=== PATIENT | female | born 1960 | race Two or more races ===

== ENCOUNTER 2019-03-14 23:01 | Emergency (ER) | payer OTHER ==
[2019-03-14 23:09] VITALS: BP 137/89; PULSE 109; TEMP 98; BMI 21.4
--- NOTE | 2019-03-17 11:33 | EKG ---
Test Reason : Blood Pressure : / mmHG Vent. Rate : 082 BPM Atrial Rate : 082 BPM P-R Int : 142 ms QRS Dur : 088 ms QT Int : 370 ms P-R-T Axes : 065 056 047 degrees QTc Int : 432 ms NORMAL SINUS RHYTHM NORMAL ECG WHEN COMPARED WITH ECG OF 08-OCT-2015 08:21, T WAVE VARIATION Confirmed by SAV ARREDONDO MD ([id number]) on 03/17/2019 11:33:03 AM Referred By: Confirmed By:SAV ARREDONDO MD
--- NOTE | 2019-03-19 14:57 | PDOC ---
Documentation entered by Geovanny Cooper SCRIBE, acting as scribe for Gabrielle Lemon MD. Gabrielle Lemon MD: This documentation has been prepared by the Kenneth garcia Daniel, SCRIBE, under my direction and personally reviewed by me in its entirety. I confirm that the documentation accurately reflects all work, treatment, procedures, and medical decision making performed by me. History of Present Illness - General Chief Complaint: Chest Pain Stated Complaint: ABD PAIN Past History - Past Medical History Allergies/Adverse Reactions: Allergies Allergy/AdvReac Type Severity Reaction Status Date / Time No Known Drug Allergies Allergy Verified 10/07/15 09:13 Home Medications: Ambulatory Orders Quetiapine Fumarate [Seroquel -] 50 mg PO BID 10/17/14 Bupropion HCl [Bupropion Xl] 300 mg PO DAILY 10/07/15 Acetaminophen [Tylenol .Regular Strength -] 650 mg PO Q4H PRN #0 tablet Folic Acid - 1 mg PO DAILY #30 tablet 10/10/15 Magnesium Oxide [Mag-Ox -] 400 mg PO BID #60 tablet 10/10/15 Potassium Chloride [K-Dur -] 20 meq PO DAILY #30 tablet.er 10/10/15 Vitamin B Comp W-C [Total B with C -] 1 each PO DAILY #30 tablet 10/10/15 Anemia: No Asthma: No Cancer: No Cardiac Disorders: No CVA: No COPD: No CHF: No Dementia: No Diabetes: No GI Disorders: No Disorders: No HTN: No Hypercholesterolemia: No Liver Disease: No Psychiatric Problems: Yes (DEPRESSION) Seizures: No Thyroid Disease: No - Surgical History Abdominal Surgery: No Appendectomy: No Cardiac Surgery: No Cholecystectomy: No Lung Surgery: No Neurologic Surgery: No Orthopedic Surgery: No - Immunization History Td Vaccination: Yes TDAP Vaccination: No Immunization Up to Date: Yes - Psycho Social/Smoking Cessation Hx Smoking Status: Yes Smoking History: Current every day smoker Years of Tobacco Use: 20 Have you smoked in the past 12 months: Yes Number of Cigarettes Smoked Daily: 1 Cigars Per Day: 0 Information on smoking cessation initiated: No 'Breaking Loose' booklet given: 07/06/13 Hx Alcohol Use: No Drug/Substance Use Hx: No Substance Use Type: Alcohol Hx Substance Use Treatment: No *Physical Exam - Vital Signs Last Vital Signs Temp Pulse Resp BP Pulse Ox 98.0 F 109 H 19 137/89 95 03/14/19 23:05 03/14/19 23:05 03/14/19 23:05 03/14/19 23:05 03/14/19 23:05 Discharge - Discharge Information Problems reviewed: No Clinical Impression/Diagnosis: Pain, Eloped from emergency department Condition: Unchanged/Unknown Disposition: LEFT BEFORE MED EVSARAH KOHLI RM - Follow up/Referral - Patient Discharge Instructions - Post Discharge Activity
--- NOTE | 2019-03-19 15:42 | EKG ---
Test Reason : Blood Pressure : / mmHG Vent. Rate : 091 BPM Atrial Rate : 091 BPM P-R Int : 138 ms QRS Dur : 090 ms QT Int : 370 ms P-R-T Axes : 062 050 042 degrees QTc Int : 455 ms NORMAL SINUS RHYTHM NORMAL ECG WHEN COMPARED WITH ECG OF 08-OCT-2015 08:21, NO SIGNIFICANT CHANGE WAS FOUND Confirmed by SEKOU CRANE MD ([id number]) on 03/19/2019 3:42:16 PM Referred By: Confirmed By:SEKOU CRANE MD
== END 2019-03-15 00:16 | disposition left against medical advice (07) ==
LOC: JER 23:01
DX: Z53.21 Procedure and treatment not carried out due to patient leaving prior to being seen by health care provider (principal)
CPT/HCPCS: 93005; 93010; 99281-25

== ENCOUNTER 2019-04-23 16:28 | Inpatient (IN) | payer OTHER ==
--- NOTE | 2019-04-23 16:41 | PDOC ---
Rapid Medical Evaluation Chief Complaint: Pain Time Seen by Provider: 04/23/19 16:33 Medical Evaluation: Allergies Allergy/AdvReac Type Severity Reaction Status Date / Time No Known Drug Allergies Allergy Verified 10/07/15 09:13 04/23/19 16:35 I have performed a brief in-person evaluation of this patient. The patient presents with a chief complaint of: lower abd pain x several days. Seen at 3 days ago and told possible uti though not given abx. Pt also told ? elevated LFTs and lipase per daughter. No dysuria, change in BM, n/v/f/c. H/o ETOH abuse and depression. Last drank this am Pertinent physical exam findings:Stable and well behzad I have ordered the following:labs The patient will proceed to the ED for further evaluation. Discharge Disposition - Diagnosis Abdominal pain Qualifiers: Abdominal location: lower abdomen, unspecified Qualified Code(s): R10.30 - Lower abdominal pain, unspecified - Referrals - Patient Instructions - Post Discharge Activity
[2019-04-23 16:59] LABS: BASO % 2.1 % (0-2.0); HEMATOCRIT 41.7 % (32.4-45.2); HEMOGLOBIN 14.2 GM/dL (10.7-15.3); LYMPH % 39.8 % (8-40); MCH 32.5 pg (25.7-33.7); MCHC 34.1 g/dl (32.0-36.0); MEAN CELL VOLUME 95.3 fl (80-96); MEAN PLT VOLUME 8.1 fl (7.5-11.1); MONO % 10.7 % (3.8-10.2); NEUT % 46.4 % (42.8-82.8); PLATELET COUNT 140 K/MM3 (134-434); RBC 4.37 M/mm3 (3.60-5.2); RDW 15.1 % (11.6-15.6); WHITE BLOOD COUNT 4.4 K/mm3 (4.0-10.0)
[2019-04-23 17:01] LABS: EPI CELLS 2.5 /HPF (0-5/HPF); HYALINE CASTS 0 /lpf (0-8); URINE APPEARANCE CLEAR; URINE BACTERIA 19.3 /hpf (NEGATIVE); URINE BILIRUBIN NEGATIVE (NEGATIVE); URINE COLOR YELLOW; URINE GLUCOSE (UA) NEGATIVE (NEGATIVE); URINE KETONE NEGATIVE (NEGATIVE); URINE LEUK ESTERASE 1+ (NEGATIVE); URINE NITRITE NEGATIVE (NEGATIVE); URINE PROTEIN TRACE (NEGATIVE); URINE RBC 6 /hpf (0-4); URINE UROBILINOGEN 0.2 mg/dL (0.2-1.0); URINE WBC 3 /hpf (0-5)
[2019-04-23 18:07] LABS: ALBUMIN 3.6 g/dl (3.4-5.0); BILIRUBIN,TOTAL 0.4 mg/dL (0.2-1); BLOOD UREA NITROGEN 10.9 mg/dL (7-18); CALCIUM 8.2 mg/dL (8.5-10.1); CREATININE 0.6 mg/dL (0.55-1.3); POTASSIUM 3.3 mmol/L (3.5-5.1); TOT PROT 7.5 g/dl (6.4-8.2)
[2019-04-23] MEDS ORDERED: SODIUM CHLORIDE 0.9% 500 ML INFUS.BAG IV ONE ×5 (18:16→23:48)
[2019-04-23] MEDS ORDERED: CEFTRIAXONE 1 GM in DEXTROSE 5%-WATER - 100 ML IVPB ONE (18:29)
[2019-04-23] MEDS ORDERED: THIAMINE HCL 200 MG/2 ML VIAL IVPB ONE (18:31)
[2019-04-23] MEDS ORDERED: FOLIC ACID 1 MG TABLET (FP) PO ONE (18:33)
[2019-04-23] MEDS ORDERED: THIAMINE HCL 200 MG/2 ML VIAL ONE (18:39)
[2019-04-23] MEDS ORDERED: FOLIC ACID 1 MG TABLET (FP) ONE (18:39)
[2019-04-23] MEDS ORDERED: CEFTRIAXONE 1 GM/50 ML BAG ONE (18:40)
[2019-04-23 18:48] LABS: MAGNESIUM 1.4 mg/dL (1.8-2.4); PHOSPHOROUS 3.5 mg/dL (2.5-4.9)
[2019-04-23] MEDS ORDERED: MAGNESIUM SULF 50% (8.12 MEQ/2 ML-1 GM VIAL) IVPB ONE (19:21)
[2019-04-23] MEDS ORDERED: POTASSIUM CHLORIDE TABS 20 MEQ TABLET.ER (FP) PO ONE ×2 (19:22→19:36)
[2019-04-23] MEDS ORDERED: MAGNESIUM SULF 50% (8.12 MEQ/2 ML-1 GM VIAL) ONE (19:36)
--- NOTE | 2019-04-23 20:10 | PDOC ---
Documentation entered by Geovanny Cooper SCRIBE, acting as scribe for Grecia Esteban DO. Grecia Esteban DO: This documentation has been prepared by the Kenneth garcia Daniel, SCRIBE, under my direction and personally reviewed by me in its entirety. I confirm that the documentation accurately reflects all work, treatment, procedures, and medical decision making performed by me. Attending Attestation - Resident Resident Name: David Robison - ED Attending Attestation I have performed the following: I have examined & evaluated the patient, The case was reviewed & discussed with the resident, I agree w/resident's findings & plan, Exceptions are as noted - HPI HPI: 04/23/19 18:31 The patient is a 58 year old female with a past medical history of alcohol abuse , depression, and palpitations here today for evaluation of lower back and suprapubic pain. The patient reports that she has had 4-5 days of bilateral lower back, flank, and suprapubic pain and initially presented to an urgent care where she was diagnosed with a UTI and was told that her liver and pancreatic enzymes were elevated. She also notes some dysuria. Patient denies headache, lightheadedness. Denies fever, chills. Denies chest pain, shortness of breath. Denies nausea, vomiting, diarrhea. Denies any change in urinary urgency or frequency. Allergies: NKDA PCP: Aravind Pruett - Physicial Exam PE: 04/23/19 18:31 Constitutional: +smell of alcohol on breath. Awake, alert, oriented. No acute distress. Head: Normocephalic. Atraumatic Eyes: PERRL. EOMI. Conjunctivae are not pale. ENT: Mucous membranes are moist and intact. Posterior pharynx without exudates or erythema. Uvula midline. Neck: Supple. Full ROM. No lymphadenopathy. Cardiovascular: Regular rate. Regular rhythm. S1, S2 regular. Distal pulses are 2+ and symmetric. Pulmonary/Chest: No evidence of respiratory distress. Clear to auscultation bilaterally No wheezing, rales or rhonchi. Abdominal: +mild suprapubic tenderness to palpation. Soft and non-distended. No rebound, guarding or rigidity. No organomegaly. No palpable masses. Good bowel sounds. Back: No CVA tenderness. Musculoskeletal: No edema. No cyanosis. No clubbing. Full range of motion in all extremities. No calf tenderness. Radial/pedal pulses are intact and 2+ bilaterally Skin: Skin is warm and dry. No petechiae. No purpura. Neurological: Alert and oriented to person, place, and time. Cranial nerves II -XII are grossly intact. Normal speech. Strength is grossly symmetric. No sensory deficits. Psychiatric: Good eye contact. Normal interaction, affect and behavior. - Medical Decision Making 04/23/19 20:02 I, Dr. Grecia Esteban, DO, attest that this document has been prepared under my direction and personally reviewed by me in its entirety. I further attest, that it accurately reflects all work, treatment, procedures and medical decision -making performed by me. a/p: 58yo female with etoh abuse and dysuria -sent from urgent care for eval of elevated lft and lipase -pt with lower abd pain, suprapubic pain -pt denies f/c -pt denies falls or head injury -pt denies cp/sob -pt drinks etoh daily - per the and daughter drinks bacardi daily - has been to rehab x 3 over 10 years -states pt doesn't admit she has a problem -pt admits to depression, but denies SI/HI -during discussion - pt declines detox and park care, but states she will go to an outpt day program for etoh abuse and will see a psych outpt to restart antidepressants -labs sent were reviewed, low mag and potassium, mildly elevated ast- most likely from etoh abuse -will monitor and reassess 04/23/19 21:37 pt with elevated lactate and uti abx ordered ivf running will repeat lactate 04/23/19 22:33 pt etoh >280 still with persistent elevated lactate 04/23/19 22:58 pt willing to stay for continued iv fluids and abx 04/23/19 23:34 resident discussed the case with [facility] who accepts pt to service for ivf hydration pt willing to stay for further eval of uti/dehydration/lactic acidosis/ intoxication Heart Score/ECG Review - ECG Intrepretation Comment:: 04/23/19 20:09 sinus at 77, nl axis, nl interval, no acute st/t wave findings
--- NOTE | 2019-04-23 20:37 | PDOC ---
History of Present Illness - General Chief Complaint: Pain Stated Complaint: ABD PAIN Time Seen by Provider: 04/23/19 16:33 History Source: Patient Exam Limitations: No Limitations - History of Present Illness Initial Comments: 58 y/o F, pmh alcohol abuse, depression, syncope, tubal ligation, presents to the ED c/o of lower abdominal pain and flank pain of 2 day duration that has worsened since onset. Pt's family is concerned about pt's alcohol abuse and would like to have her get help. They report that she confabulates stories and refuses to get help. As per family, she has displayed concerning behavior as a result of her alcohol abuse. Pt otherwise has no other c/o. Denies f/c/n/v/d/sob , chest pain 04/23/19 20:33 04/23/19 20:39 Past History - Past Medical History Allergies/Adverse Reactions: Allergies Allergy/AdvReac Type Severity Reaction Status Date / Time No Known Drug Allergies Allergy Verified 10/07/15 09:13 Home Medications: Ambulatory Orders Cephalexin [Keflex] 500 mg PO BID 7 Days #14 capsule 04/23/19 Metoprolol Tartrate [Lopressor -] 25 mg PO DAILY 04/23/19 Anemia: No Asthma: No Cancer: No Cardiac Disorders: Yes (PALPITATIONS) CVA: No COPD: No CHF: No Dementia: No Diabetes: No GI Disorders: No Disorders: No HTN: No Hypercholesterolemia: No Liver Disease: No Psychiatric Problems: Yes (DEPRESSION) Seizures: No Thyroid Disease: No Other medical history: ETOH ABUSE - Surgical History Abdominal Surgery: No Appendectomy: No Cardiac Surgery: No Cholecystectomy: No Lung Surgery: No Neurologic Surgery: No Orthopedic Surgery: No - Immunization History Td Vaccination: Yes TDAP Vaccination: No Immunization Up to Date: Yes - Psycho Social/Smoking Cessation Hx Smoking Status: Yes Smoking History: Never smoked Years of Tobacco Use: 20 Have you smoked in the past 12 months: Yes Number of Cigarettes Smoked Daily: 1 Cigars Per Day: 0 'Breaking Loose' booklet given: 07/06/13 Hx Alcohol Use: No Drug/Substance Use Hx: No Substance Use Type: Alcohol Hx Substance Use Treatment: No Review of Systems - Review of Systems Able to Perform ROS?: Yes Is the patient limited Mauritian proficient: No Constitutional: Yes: Symptoms Reported, Weight Stable. No: Chills, Fever, Loss of Appetite HEENTM: Yes: Symptoms Reported. No: Eye Pain, Tearing Respiratory: Yes: Symptoms reported. No: Cough, Shortness of Breath Cardiac (ROS): Yes: Symptoms Reported. No: Chest Pain, Chest Tightness ABD/GI: Yes: Symptoms Reported. No: Abdominal Distended, Diarrhea, Nausea : Yes: Symptoms Reported, Burning, Dysuria. No: Hematuria Neurological: Yes: Symptoms reported. No: Headache, Numbness *Physical Exam - Vital Signs Last Vital Signs Temp Pulse Resp BP Pulse Ox 98.5 F 106 H 18 144/94 98 04/23/19 16:33 04/23/19 16:33 04/23/19 16:33 04/23/19 16:33 04/23/19 16:33 - Physical Exam General Appearance: Yes: Nourished, Appropriately Dressed HEENT: positive: EOMI, MONTSE, Normal ENT Inspection, Pharynx Normal Neck: positive: Trachea midline, Normal Thyroid, Supple Respiratory/Chest: positive: Lungs Clear, Normal Breath Sounds. negative: Crackles, Wheezing Cardiovascular: positive: Regular Rhythm, Regular Rate, S1, S2. negative: Murmur, Gallop/S3, Gallop/S4 Vascular Pulses: Dorsalis-Pedis (R): 2+, Doralis-Pedis (L): 2+ Gastrointestinal/Abdominal: positive: Normal Bowel Sounds, Soft. negative: Guarding Neurologic: positive: Fully Oriented, Alert, Normal Mood/Affect ED Treatment Course - LABORATORY CBC & Chemistry Diagram: 04/23/19 16:44 04/23/19 20:30 - ADDITIONAL ORDERS Additional order review: Laboratory Results 04/23/19 04/23/19 04/23/19 18:45 16:44 16:44 Sodium 141 Potassium 3.3 L Chloride 101 Carbon Dioxide 31 Anion Gap 8 BUN 10.9 Creatinine 0.6 Est GFR (CKD-EPI)AfAm 118.09 Est GFR (CKD-EPI)NonAf 101.89 Random Glucose 99 Lactic Acid 3.8 H* Calcium 8.2 L Phosphorus 3.5 Magnesium 1.4 L Total Bilirubin 0.4 AST 96 H ALT 30 Alkaline Phosphatase 124 H Total Protein 7.5 Albumin 3.6 Lipase 198 Urine Color Yellow Urine Appearance Clear Urine pH 7.0 Ur Specific [place] 1.009 L Urine Protein Trace Urine Glucose (UA) Negative Urine Ketones Negative Urine Blood 1+ H Urine Nitrite Negative Urine Bilirubin Negative Urine Urobilinogen 0.2 Ur Leukocyte Esterase 1+ H Urine WBC (Auto) 3 Urine RBC (Auto) 6 Urine Casts (Auto) 0 U Epithel Cells (Auto) 2.5 Urine Bacteria (Auto) 19.3 04/23/19 16:44 RBC 4.37 MCV 95.3 MCHC 34.1 RDW 15.1 MPV 8.1 Neutrophils % 46.4 D Lymphocytes % 39.8 D Monocytes % 10.7 H Eosinophils % 1.0 Basophils % 2.1 H D - Medications Given in the ED: ED Medications Discontinued Medications Generic Name Dose Route Start Last Admin Trade Name Freq PRN Reason Stop Dose Admin Folic Acid 1 mg 04/23/19 18:33 04/23/19 18:54 Folic Acid - PO 04/23/19 18:34 1 mg ONCE ONE Administration Ceftriaxone Sodium 1 gm/ 100 mls @ 200 mls/hr 04/23/19 18:29 04/23/19 18:54 Dextrose IVPB 04/23/19 18:58 200 mls/hr ONCE ONE Administration Protocol Magnesium Sulfate 2 gm 04/23/19 19:21 04/23/19 20:07 Magnesium Sulfate IVPB 04/23/19 19:22 2 gm ONCE ONE Administration Potassium Chloride 40 meq 04/23/19 19:22 04/23/19 20:07 K-Dur - PO 04/23/19 19:23 40 meq ONCE ONE Administration Sodium Chloride 1,000 ml 04/23/19 18:16 04/23/19 18:54 Normal Saline - IV 04/23/19 18:17 1,000 ml ONCE ONE Administration Sodium Chloride 1,000 ml 04/23/19 20:19 04/23/19 20:24 Normal Saline - IV 04/23/19 20:20 1,000 ml ONCE ONE Administration Thiamine HCl 200 mg 04/23/19 18:31 04/23/19 18:54 Vitamin B1 Injection - IVPB 04/23/19 18:32 200 mg ONCE ONE Administration Medical Decision Making - Medical Decision Making 60 y/o M, pmh hx of prostate cancer in remission, recent urethral catheterization for urinary retention, presents to the ED for bloody urine. #Suprapubic tenderness 2/2 to UTI EKG UA, UCx CBC, CMP IVFx3 bags Lactic acid Mag + Phos Thiamine and Folate given Ceftriaxone given 04/23/19 20:42 04/23/19 20:43 04/23/19 20:43 Discharge - Discharge Information Problems reviewed: Yes Clinical Impression/Diagnosis: Alcohol dependence with uncomplicated withdrawal Abdominal pain Qualifiers: Abdominal location: lower abdomen, unspecified Qualified Code(s): R10.30 - Lower abdominal pain, unspecified Condition: Stable - Admission Yes - Additional Discharge Information Prescriptions: Cephalexin [Keflex] 500 mg PO BID 7 Days #14 capsule - Follow up/Referral Referrals: Aravind Pruett MD [Primary Care Provider] - Kennedi Belle MD [Staff Physician] - - Patient Discharge Instructions Patient Printed Discharge Instructions: Alcohol and Stress: There are Safer Ways to [place], DI for Alcohol Abuse, DI for Drug or Alcohol Withdrawal, DI for Alcohol Poisoning Additional Instructions: You were seen in the emergency room for lower abdominal pain. While in the emergency room, we evaluated you with lab work, blood work and EKG. We found that your symptoms were likely caused by a urinary tract infection. We treated you with medications and your symptoms improved To complete the treatment of your urinary tract infection, please take the following medication Keflex 500mg two times a day for 7 days by mouth Please take all your medications as prescribed Please follow up with your primary care physician within 1 week Return to the emergency room, if you experience worsening of your symptoms, abdominal pain, nausea, chest pain, or worsening of any of your condition. - Post Discharge Activity
[2019-04-23 21:11] LABS: ALBUMIN 3.5 g/dl (3.4-5.0); BILIRUBIN,TOTAL 0.3 mg/dL (0.2-1); BLOOD UREA NITROGEN 9.3 mg/dL (7-18); CALCIUM 7.6 mg/dL (8.5-10.1); CREATININE 0.5 mg/dL (0.55-1.3); MAGNESIUM 2.1 mg/dL (1.8-2.4); PHOSPHOROUS 3.5 mg/dL (2.5-4.9); POTASSIUM 3.7 mmol/L (3.5-5.1); TOT PROT 7.2 g/dl (6.4-8.2)
--- NOTE | 2019-04-24 00:21 | PN ---
Teaching Attending Note Name of Resident: Rhiannon Gomez ATTENDING PHYSICIAN STATEMENT I saw and evaluated the patient. I reviewed the resident's note and discussed the case with the resident. I agree with the resident's findings and plan as documented. SUBJECTIVE: 58 y/o F, pmh alcohol abuse Brought in, complaining of Lower abdominal pain initially however UA was not very impressive. Patient felt to be acutely intoxicated with EtOH with markedly high alcohol level. She says she drinks 4 cups of rum a day and does not remember when her last drink was. Denies any use of other illicit drugs. OBJECTIVE: Last Vital Signs Temp Pulse Resp BP Pulse Ox 97.8 F 87 18 129/77 100 04/23/19 19:15 04/23/19 19:15 04/23/19 19:15 04/23/19 19:15 04/23/19 19:15 GENERAL: Well developed,Not in acute distress HEENT: Normocephalic, atraumatic. PERRLA, EOMI. No conjunctival pallor. Sclera are non- icteric. Moist mucous membranes. Oropharynx is clear. NECK: Supple. Full ROM. No JVD. Carotid pulses 2+ and symmetric, without bruits. No thyromegaly. No lymphadenopathy. CARDIOVASCULAR: Regular rate and rhythm. No murmurs, rubs, or gallops. Distal pulses are 2+ and symmetric. PULMONARY: No evidence of respiratory distress. Lungs clear to auscultation bilaterally. No wheezing, rales or rhonchi. ABDOMINAL: Soft. Lower abdominal tenderness. Non-distended. No rebound or guarding. No organomegaly. Normoactive bowel sounds. MUSCULOSKELETAL Normal range of motion at all joints. No bony deformities or tenderness. No CVA tenderness. EXTREMITIES: No cyanosis. No clubbing. No edema. No calf tenderness. SKIN: Warm and dry. Normal capillary refill. No rashes. No jaundice. NEUROLOGICAL: Alert, awake, appropriate. Cranial nerves 2-12 intact. No deficits to light touch and temperature in face, upper extremities and lower extremities. No motor deficits in the in face, upper extremities and lower extremities. Normoreflexic in the upper and lower extremities. Normal speech. PSYCHIATRIC: Cooperative. Good eye contact. Appropriate mood and affect. Abnormal Lab Results 04/23/19 04/23/19 04/23/19 16:44 16:44 16:44 Monocytes % 10.7 H Basophils % 2.1 H D Potassium 3.3 L Creatinine Lactic Acid Calcium 8.2 L Magnesium 1.4 L AST 96 H Alkaline Phosphatase 124 H Ur Specific [place] 1.009 L Urine Blood 1+ H Ur Leukocyte Esterase 1+ H Alcohol, Quantitative 04/23/19 04/23/19 04/23/19 18:45 20:30 20:30 Monocytes % Basophils % Potassium Creatinine 0.5 L Lactic Acid 3.8 H* Calcium 7.6 L Magnesium AST 86 H Alkaline Phosphatase Ur Specific [place] Urine Blood Ur Leukocyte Esterase Alcohol, Quantitative 295.9 H 04/23/19 21:35 Monocytes % Basophils % Potassium Creatinine Lactic Acid 3.1 H* Calcium Magnesium AST Alkaline Phosphatase Ur Specific [place] Urine Blood Ur Leukocyte Esterase Alcohol, Quantitative Imaging studies reviewed ASSESSMENT AND PLAN: Acute alcohol intoxication with likely impending withdrawal. Suspect lactic acidosis is likely secondary to EtOH ingestion.UA was not very impressive for infection. Electrolyte derangements including hypomagnesemia and hypokalemia. Elevated AST suspect likely secondary to alcohol abuse. Admit to [facility] IV fluid hydration CIWA protocol Check phosphate Supplement potassium Supplement magnesium Banana bag Librium protocol Urine toxicology screen Trend lactic acid If fever spike would send blood cultures Bedside bladder scan, would perform urethral catheterization if suspect acute urinary retention Heparin subcutaneously for DVT prophylaxis #Lower abdominal pain and tenderness with lactic acidosis Abdomen pelvis CT with p.o. contrast to rule out diverticulitis
[2019-04-24] MEDS ORDERED: LORazepam 1 MG TABLET PO PRN (00:37)
--- NOTE | 2019-04-24 01:20 | HP ---
CHIEF COMPLAINT: suprapubic pain x 2 weeks PCP: [facility] HISTORY OF PRESENT ILLNESS: 58 yo F PMH of Alcohol abuse, Depression, heart palpitations presents to the ED for suprapubic pain. pt states that she has been having suprapubic pain for 2 weeks. it has been constant. heating pads alleviate the pain. pt states that she went to urgent care on sunday and they told her she may have a UTI but did not prescribe any antibiotics. the urgent care called her today and told her to come to the ED . pt denies dysuria, frequency, f/c/n/v/d ER course was notable for: (1)lactate (2)ceftriaxone (3)4 L IVF Recent Travel: denies PAST MEDICAL HISTORY: alcohol abuse, depression, heart palpitations PAST SURGICAL HISTORY: breast reduction, tubal ligation Social History: Smoking:smokes 1 cigarette/night for many years Alcohol: 5 drinks daily Drugs: denies Allergies No Known Drug Allergies Allergy (Verified 10/07/15 09:13) Home Medications Medication Instructions Recorded Metoprolol Tartrate [Lopressor -] 25 mg PO DAILY 04/23/19 REVIEW OF SYSTEMS CONSTITUTIONAL: Absent: fever, chills, diaphoresis, generalized weakness, malaise, loss of appetite, weight change HEENT: Absent: rhinorrhea, nasal congestion, throat pain, throat swelling, difficulty swallowing, mouth swelling, ear pain, eye pain, visual changes CARDIOVASCULAR: Present: palpitations Absent: chest pain, syncope, irregular heart rate, lightheadedness, peripheral edema RESPIRATORY: Absent: cough, shortness of breath, dyspnea with exertion, orthopnea, wheezing, stridor, hemoptysis GASTROINTESTINAL: Present: abdominal pain Absent: abdominal distension, nausea, vomiting, diarrhea, constipation, melena, hematochezia GENITOURINARY: Absent: dysuria, frequency, urgency, hesitancy, hematuria, flank pain, genital pain MUSCULOSKELETAL: Absent: myalgia, arthralgia, joint swelling, back pain, neck pain SKIN: Absent: rash, itching, pallor HEMATOLOGIC/IMMUNOLOGIC: Absent: easy bleeding, easy bruising, lymphadenopathy, frequent infections ENDOCRINE: Absent: unexplained weight gain, unexplained weight loss, heat intolerance, cold intolerance NEUROLOGIC: Present: headache, B/L lower leg numbness Absent: headache, focal weakness, dizziness, unsteady gait, seizure, mental status changes, bladder or bowel incontinence PSYCHIATRIC: Absent: anxiety, depression, suicidal or homicidal ideation, hallucinations. PHYSICAL EXAMINATION Vital Signs - 24 hr 04/23/19 04/23/19 16:33 19:15 Temperature 98.5 F 97.8 F Pulse Rate 106 H Pulse Rate [ 87 Right Radial] Respiratory 18 18 Rate Blood Pressure 144/94 Blood Pressure 129/77 [Left Arm] O2 Sat by Pulse 98 100 Oximetry (%) GENERAL: Awake, alert, and fully oriented, in no acute distress. CIWA 9. HEAD: Normal with no signs of trauma. EYES: Pupils equal, round and reactive to light, extraocular movements intact, sclera anicteric EARS, NOSE, THROAT: Ears normal, nares patent, oropharynx clear without exudates. Moist mucous membranes. tongue fasciculations NECK: Normal range of motion, supple without lymphadenopathy LUNGS: Breath sounds equal, clear to auscultation bilaterally. No wheezes, and no crackles. No accessory muscle use. HEART: Regular rate and rhythm, normal S1 and S2 without murmur, rub or gallop. ABDOMEN: Soft, nontender, not distended, normoactive bowel sounds, no guarding, no rebound, no masses. MUSCULOSKELETAL: Normal range of motion at all joints. No bony deformities or tenderness. No CVA tenderness. UPPER EXTREMITIES: 2+ pulses, warm, well-perfused. No cyanosis. No clubbing. No peripheral edema. tremulous LOWER EXTREMITIES: 2+ pulses, warm, well-perfused. No calf tenderness. No peripheral edema. NEUROLOGICAL: Cranial nerves II-XII intact. Normal speech. Normal gait. PSYCHIATRIC: Cooperative. Good eye contact. Appropriate mood and affect. SKIN: Warm, dry, normal turgor, no rashes or lesions noted, normal capillary refill. Laboratory Last Values WBC 4.4 K/mm3 (4.0-10.0) 04/23/19 16:44 RBC 4.37 M/mm3 (3.60-5.2) 04/23/19 16:44 Hgb 14.2 GM/dL (10.7-15.3) 04/23/19 16:44 Hct 41.7 % (32.4-45.2) 04/23/19 16:44 MCV 95.3 fl (80-96) 04/23/19 16:44 MCH 32.5 pg (25.7-33.7) 04/23/19 16:44 MCHC 34.1 g/dl (32.0-36.0) 04/23/19 16:44 RDW 15.1 % (11.6-15.6) 04/23/19 16:44 Plt Count 140 K/MM3 (134-434) D 04/23/19 16:44 MPV 8.1 fl (7.5-11.1) 04/23/19 16:44 Absolute Neuts (auto) 2.0 K/mm3 (1.5-8.0) 04/23/19 16:44 Neutrophils % 46.4 % (42.8-82.8) D 04/23/19 16:44 Lymphocytes % 39.8 % (8-40) D 04/23/19 16:44 Monocytes % 10.7 % (3.8-10.2) H 04/23/19 16:44 Eosinophils % 1.0 % (0-4.5) 04/23/19 16:44 Basophils % 2.1 % (0-2.0) H D 04/23/19 16:44 Nucleated RBC % 0 % (0-0) 04/23/19 16:44 Sodium 142 mmol/L (136-145) 04/23/19 20:30 Potassium 3.7 mmol/L (3.5-5.1) 04/23/19 20:30 Chloride 104 mmol/L (98-107) 04/23/19 20:30 Carbon Dioxide 30 mmol/L (21-32) 04/23/19 20:30 Anion Gap 8 MMOL/L (8-16) 04/23/19 20:30 BUN 9.3 mg/dL (7-18) 04/23/19 20:30 Creatinine 0.5 mg/dL (0.55-1.3) L 04/23/19 20:30 Est GFR (CKD-EPI)AfAm 125.40 04/23/19 20:30 Est GFR (CKD-EPI)NonAf 108.19 04/23/19 20:30 Random Glucose 92 mg/dL (74-106) 04/23/19 20:30 Lactic Acid 3.1 mmol/L (0.4-2.0) H* 04/23/19 21:35 Calcium 7.6 mg/dL (8.5-10.1) L 04/23/19 20:30 Phosphorus 3.5 mg/dL (2.5-4.9) 04/23/19 20:30 Magnesium 2.1 mg/dL (1.8-2.4) 04/23/19 20:30 Total Bilirubin 0.3 mg/dL (0.2-1) 04/23/19 20:30 AST 86 U/L (15-37) H 04/23/19 20:30 ALT 31 U/L (13-61) 04/23/19 20:30 Alkaline Phosphatase 112 U/L (45-117) 04/23/19 20:30 Total Protein 7.2 g/dl (6.4-8.2) 04/23/19 20:30 Albumin 3.5 g/dl (3.4-5.0) 04/23/19 20:30 Lipase 198 U/L (73-393) 04/23/19 16:44 Urine Color Yellow 04/23/19 16:44 Urine Appearance Clear 04/23/19 16:44 Urine pH 7.0 (5.0-8.0) 04/23/19 16:44 Ur Specific Manly 1.009 (1.010-1.035) L 04/23/19 16:44 Urine Protein Trace (NEGATIVE) 04/23/19 16:44 Urine Glucose (UA) Negative (NEGATIVE) 04/23/19 16:44 Urine Ketones Negative (NEGATIVE) 04/23/19 16:44 Urine Blood 1+ (NEGATIVE) H 04/23/19 16:44 Urine Nitrite Negative (NEGATIVE) 04/23/19 16:44 Urine Bilirubin Negative (NEGATIVE) 04/23/19 16:44 Urine Urobilinogen 0.2 mg/dL (0.2-1.0) 04/23/19 16:44 Ur Leukocyte Esterase 1+ (NEGATIVE) H 04/23/19 16:44 Urine WBC (Auto) 3 /hpf (0-5) 04/23/19 16:44 Urine RBC (Auto) 6 /hpf (0-4) 04/23/19 16:44 Urine Casts (Auto) 0 /lpf (0-8) 04/23/19 16:44 U Epithel Cells (Auto) 2.5 /HPF (0-5/HPF) 04/23/19 16:44 Urine Bacteria (Auto) 19.3 /hpf (NEGATIVE) 04/23/19 16:44 Alcohol, Quantitative 295.9 mg/dL (0.0-5.0) H 04/23/19 20:30 ASSESSMENT/PLAN: 58 yo F PMH of Alcohol abuse, Depression, heart palpitations presents to the ED for suprapubic pain. pt is admitted to medicine for lactic acidosis Lactic Acidosis 2/2 Alcohol use vs thiamine deficiency vs acute infectious process - afebrile, no leukocytosis -neg UA -CT abdomen / pelvis to eval for suprapubic pain - Alcohol level 295 -will measure folate, B12 -c/w thiamine, folate, IVF, multivitamin -s/p 1 g ceftriaxone in ED, 5L IVF - continue to trend - pt ammenable to transfer to [facility] following medical optimization Alcohol Withdrawals -[facility] protocol - seizure and aspiration precaution - elevated AST likely 2/2 alcohol abuse Heart palpitations -continue metoprolol F/E/N -monitor lytes -continue NS @ 100mls/hr -low sodium diet Dispo: Admit to medicine Visit type - Emergency Visit Emergency Visit: Yes ED Registration Date: 04/23/19 Care time: The patient presented to the Emergency Department on the above date and was hospitalized for further evaluation of their emergent condition. - New Patient This patient is new to me today: Yes - Critical Care Critical Care patient: No ATTENDING PHYSICIAN STATEMENT I saw and evaluated the patient. I reviewed the resident's note and discussed the case with the resident. I agree with the resident's findings and plan as documented. SUBJECTIVE: OBJECTIVE: ASSESSMENT AND PLAN:
[2019-04-24] MEDS ORDERED: chlordiazePOXIDE HCL 25 MG CAPSULE ONE ×2 (04:50→12:57)
[2019-04-24] MEDS ORDERED: LORazepam 1 MG TABLET PO SCH (05:00)
[2019-04-24] MEDS: chlordiazePOXIDE HCL 25 MG CAPSULE PO SCH ×2 (05:21→13:24)
[2019-04-24] MEDS ORDERED: HEPARIN NA (PORCINE) 5,000 UNITS/ML 1ML VIAL SQ SCH (06:00)
[2019-04-24] MEDS ORDERED: HEPARIN NA (PORCINE) 5,000 UNITS/ML 1ML VIAL ONE (06:22)
[2019-04-24 07:08] LABS: BASO % 1.2 % (0-2.0); EOS % 0.6 % (0-4.5); HEMATOCRIT 34.2 % (32.4-45.2); LYMPH % 13.8 % (8-40); MCH 32.8 pg (25.7-33.7); MCHC 35.2 g/dl (32.0-36.0); MEAN CELL VOLUME 93.2 fl (80-96); MEAN PLT VOLUME 8.4 fl (7.5-11.1); MONO % 10.8 % (3.8-10.2); NEUT % 73.6 % (42.8-82.8); PLATELET COUNT 102 K/MM3 (134-434); RBC 3.67 M/mm3 (3.60-5.2); RDW 15.2 % (11.6-15.6)
[2019-04-24] MEDS ORDERED: chlordiazePOXIDE HCL 10 MG CAPSULE ONE ×2 (07:43→15:44)
[2019-04-24] MEDS: chlordiazePOXIDE HCL 10 MG CAPSULE PO PRN ×2 (07:46→15:39)
[2019-04-24 08:12] LABS: ALBUMIN 3.3 g/dl (3.4-5.0); BILIRUBIN,TOTAL 0.7 mg/dL (0.2-1); BLOOD UREA NITROGEN 5.3 mg/dL (7-18); CREATININE 0.4 mg/dL (0.55-1.3); MAGNESIUM 1.3 mg/dL (1.8-2.4); PHOSPHOROUS 2.3 mg/dL (2.5-4.9); TOT PROT 6.6 g/dl (6.4-8.2)
[2019-04-24 08:19] LABS: CALCIUM 6.8 mg/dL (8.5-10.1)
[2019-04-24] MEDS ORDERED: POTASSIUM CHLORIDE TABS 20 MEQ TABLET.ER (FP) PO ONE ×5 (08:39→18:25)
[2019-04-24] MEDS ORDERED: MAGNESIUM SULF 50% (8.12 MEQ/2 ML-1 GM VIAL) IVPB ONE (08:39)
[2019-04-24] MEDS ORDERED: NAPH,MB-DB/K PH,MBDB POWDER PACKET PO ONE (08:44)
[2019-04-24] MEDS ORDERED: CALCIUM GLUCONATE 10% - 1,000 MG/10 ML VIAL IVPUSH ONE (09:45)
[2019-04-24] MEDS ORDERED: FOLIC ACID INJECTION - 1 MG, THIAMINE HCL 100 MG, MULTIVIT INJECTION ADULT 10 ML in SOD... IVPB ONE (10:00)
[2019-04-24] MEDS ORDERED: FOLIC ACID 1 MG TABLET (FP) PO SCH (10:00)
[2019-04-24] MEDS ORDERED: THIAMINE HCL 100 MG TABLET (FP) PO SCH (10:00)
[2019-04-24] MEDS ORDERED: MULTIVITAMINS (DAILY MVI) TABLET (FP) PO SCH (10:00)
[2019-04-24] MEDS ORDERED: CALCIUM GLUCONATE 10% - 1,000 MG/10 ML VIAL ONE (10:16)
[2019-04-24] MEDS ORDERED: MAGNESIUM 1GM/D5W - 2 GM/200 ML IVPB IVPB ONE (10:17)
[2019-04-24] MEDS: METOPROLOL TARTRATE 25 MG TABLET (FP) PO SCH (11:18)
--- NOTE | 2019-04-24 11:51 | EKG ---
Test Reason : Blood Pressure : / mmHG Vent. Rate : 077 BPM Atrial Rate : 077 BPM P-R Int : 144 ms QRS Dur : 086 ms QT Int : 406 ms P-R-T Axes : 069 063 051 degrees QTc Int : 459 ms SINUS RHYTHM WITH PREMATURE SUPRAVENTRICULAR COMPLEXES OTHERWISE NORMAL ECG WHEN COMPARED WITH ECG OF 14-MAR-2019 23:29, PREMATURE SUPRAVENTRICULAR COMPLEXES ARE NOW PRESENT Confirmed by KESHAWN GOLD, CROW ([id number]) on 04/24/2019 11:51:02 AM Referred By: Confirmed By:CROW LIAO MD
[2019-04-24] MEDS ORDERED: CALCIUM CHLORIDE 1 GM/10 ML *DISP.SYRIN IVPUSH ONE (11:54)
[2019-04-24] MEDS ORDERED: levoFLOXacin 750 MG TABLET PO SCH (12:00)
[2019-04-24] MEDS ORDERED: PANTOPRAZOLE 40 MG TABLET ONE ×2 (12:57→13:00)
[2019-04-24] MEDS: PANTOPRAZOLE 40 MG TABLET PO SCH (13:00)
[2019-04-24] MEDS ORDERED: metroNIDAZOLE 250 MG TABLET ONE (13:27)
[2019-04-24] MEDS: metroNIDAZOLE 250 MG TABLET PO SCH ×2 (13:27→22:18)
--- NOTE | 2019-04-24 14:35 | EKG ---
Test Reason : Blood Pressure : / mmHG Vent. Rate : 079 BPM Atrial Rate : 079 BPM P-R Int : 080 ms QRS Dur : 098 ms QT Int : 418 ms P-R-T Axes : 034 053 038 degrees QTc Int : 479 ms POOR DATA QUALITY, INTERPRETATION MAY BE ADVERSELY AFFECTED SINUS RHYTHM WITH SHORT AK JUNCTIONAL ST DEPRESSION, PROBABLY NORMAL BORDERLINE ECG WHEN COMPARED WITH ECG OF 23-APR-2019 18:34, PREMATURE SUPRAVENTRICULAR COMPLEXES ARE NO LONGER PRESENT T WAVE AMPLITUDE HAS INCREASED IN ANTERIOR LEADS Confirmed by CROW LIAO MD ([id number]) on 04/24/2019 2:35:06 PM Referred By: Confirmed By:CROW LIAO MD
[2019-04-24] MEDS ORDERED: diazePAM CARPU-JECT 10 MG/2 ML DISP.SYRIN IVPUSH ONE (15:57)
[2019-04-24] MEDS ORDERED: diazePAM CARPU-JECT 10 MG/2 ML DISP.SYRIN ONE (16:27)
[2019-04-24 16:34] LABS: ALBUMIN 3.7 g/dl (3.4-5.0); BILIRUBIN,TOTAL 1.4 mg/dL (0.2-1); BLOOD UREA NITROGEN 3.1 mg/dL (7-18); CALCIUM 8.1 mg/dL (8.5-10.1); CREATININE 0.6 mg/dL (0.55-1.3); POTASSIUM 3.3 mmol/L (3.5-5.1); TOT PROT 7.8 g/dl (6.4-8.2)
[2019-04-24] MEDS ORDERED: LORazepam 2 MG/ML SDV VIAL IVPUSH PRN (16:39)
--- NOTE | 2019-04-24 17:05 | PN ---
Physical Exam: SUBJECTIVE: Patient seen and examined. Patient still tremorous on exam and slightly anxious. Initially had a headache which improved throughout the day. Agreeable to go to [facility] for detox/rehab. OBJECTIVE: Vital Signs Period Temp Pulse Resp BP Sys/Sauceda Pulse Ox Last 24 Hr 97.6 F-98.2 F 87-90 18-20 129-154/77-90 97-100 GENERAL: The patient is awake, alert. Oriented to self, place, month and year but not date HEAD: Normal with no signs of trauma. EYES: PERRL, EOMI ENT: dry mucous membranes NECK: Trachea midline, full range of motion, supple. LUNGS: Breath sounds equal, clear to auscultation bilaterally, no wheezes, no crackles, no accessory muscle use. HEART: Tachycardic, no murmur noted ABDOMEN: Soft, nontender, nondistended, normoactive bowel sounds, no guarding, no rebound EXTREMITIES: 2+ pulses, warm, well-perfused, no edema. NEUROLOGICAL: normal speech, gait not observed PSYCH: anxious, no agitation. CIWA 6 SKIN: Warm, dry, normal turgor, no rashes or lesions noted Laboratory Results - last 24 hr 04/23/19 04/23/19 04/23/19 16:44 18:45 20:30 WBC RBC Hgb Hct MCV MCH MCHC RDW Plt Count MPV Absolute Neuts (auto) Neutrophils % Lymphocytes % Monocytes % Eosinophils % Basophils % Nucleated RBC % Sodium 141 142 Potassium 3.3 L 3.7 Chloride 101 104 Carbon Dioxide 31 30 Anion Gap 8 8 BUN 10.9 9.3 Creatinine 0.6 0.5 L Est GFR (CKD-EPI)AfAm 118.09 125.40 Est GFR (CKD-EPI)NonAf 101.89 108.19 Random Glucose 99 92 Lactic Acid 3.8 H* Calcium 8.2 L 7.6 L Phosphorus 3.5 3.5 Magnesium 1.4 L 2.1 Iron Total Bilirubin 0.4 0.3 AST 96 H 86 H ALT 30 31 Alkaline Phosphatase 124 H 112 Total Protein 7.5 7.2 Albumin 3.6 3.5 Lipase 198 Vitamin B12 Serum Folate TSH Alcohol, Quantitative 04/23/19 04/23/19 04/24/19 20:30 21:35 02:30 WBC RBC Hgb Hct MCV MCH MCHC RDW Plt Count MPV Absolute Neuts (auto) Neutrophils % Lymphocytes % Monocytes % Eosinophils % Basophils % Nucleated RBC % Sodium Potassium Chloride Carbon Dioxide Anion Gap BUN Creatinine Est GFR (CKD-EPI)AfAm Est GFR (CKD-EPI)NonAf Random Glucose Lactic Acid 3.1 H* Calcium Phosphorus Magnesium Iron Total Bilirubin AST ALT Alkaline Phosphatase Total Protein Albumin Lipase Vitamin B12 Serum Folate 5 TSH Alcohol, Quantitative 295.9 H 04/24/19 04/24/19 04/24/19 02:30 06:02 06:02 WBC 5.0 RBC 3.67 Hgb 12.0 Hct 34.2 D MCV 93.2 MCH 32.8 MCHC 35.2 RDW 15.2 Plt Count 102 L D MPV 8.4 Absolute Neuts (auto) 3.7 Neutrophils % 73.6 D Lymphocytes % 13.8 D Monocytes % 10.8 H Eosinophils % 0.6 Basophils % 1.2 Nucleated RBC % 0 Sodium 137 Potassium 3.0 L Chloride 100 Carbon Dioxide 23 Anion Gap 14 BUN 5.3 L Creatinine 0.4 L Est GFR (CKD-EPI)AfAm 134.95 Est GFR (CKD-EPI)NonAf 116.43 Random Glucose 74 Lactic Acid Calcium 6.8 L* Phosphorus 2.3 L Magnesium 1.3 L Iron 136 Total Bilirubin 0.7 AST 161 H ALT 34 Alkaline Phosphatase 114 Total Protein 6.6 Albumin 3.3 L Lipase Vitamin B12 492 Serum Folate TSH 1.24 Alcohol, Quantitative 04/24/19 04/24/19 07:45 15:45 WBC RBC Hgb Hct MCV MCH MCHC RDW Plt Count MPV Absolute Neuts (auto) Neutrophils % Lymphocytes % Monocytes % Eosinophils % Basophils % Nucleated RBC % Sodium 132 L Potassium 3.3 L Chloride 94 L Carbon Dioxide 28 Anion Gap 10 BUN 3.1 L Creatinine 0.6 Est GFR (CKD-EPI)AfAm 118.09 Est GFR (CKD-EPI)NonAf 101.89 Random Glucose 124 H Lactic Acid 1.3 Calcium 8.1 L Phosphorus Magnesium Iron Total Bilirubin 1.4 H AST 123 H ALT 35 Alkaline Phosphatase 132 H Total Protein 7.8 Albumin 3.7 Lipase Vitamin B12 Serum Folate TSH Alcohol, Quantitative Active Medications Generic Name Dose Route Start Last Admin Trade Name Freq PRN Reason Stop Dose Admin Calcium Chloride 1 gm 04/24/19 11:54 Calcium Chloride 10% - IVPUSH 04/24/19 11:55 ONCE ONE Folic Acid 1 mg 04/25/19 10:00 Folic Acid - PO DAILY [facility] Folic Acid 1 mg/ Thiamine HCl 1,000 mls @ 125 mls/hr 04/24/19 10:00 04/24/19 11:42 100 mg/ Multivitamins/Minerals IVPB 04/24/19 17:59 125 mls/hr 10 ml/ Sodium Chloride ONCE ONE Administration Levofloxacin 750 mg 04/24/19 12:00 04/24/19 13:00 Levaquin PO 750 mg DAILY [facility] Administration Lorazepam 2 mg 04/24/19 16:39 Ativan Injection - IVPUSH Q2H PRN ANXIETY Metoprolol Tartrate 25 mg 04/24/19 10:00 04/24/19 11:18 Lopressor - PO 25 mg DAILY [facility] Administration Metronidazole 500 mg 04/24/19 12:00 04/24/19 13:27 Flagyl - PO 500 mg BID [facility] Administration Multivitamins/Minerals/Vitamin C 1 tab 04/25/19 10:00 Tab-A-Vit - PO DAILY [facility] Pantoprazole Sodium 40 mg 04/24/19 12:00 04/24/19 13:00 Protonix - PO 40 mg DAILY [facility] Administration Thiamine HCl 100 mg 04/25/19 10:00 Vitamin B1 - PO DAILY [facility] ASSESSMENT/PLAN: 58 y/o/f with PMHx of Alcohol abuse, depression, heart palpitations presents to the ED for suprapubic pain. Pt is admitted to medicine for lactic acidosis and alcohol intoxication. #Lactic Acidosis 2/2 Alcohol use vs. Colitis - afebrile, no leukocytosis - UA negative for UTI - CT AP - diffuse fatty liver, Left sided nephrolithiasis without obstruction, possible left sided colitis without evidence of diverticulitis - Alcohol level 295 on admisison - folate, B12 WNL - c/w thiamine, folate, IVF, multivitamin - pt ammenable to transfer to [facility] following medical optimization - Levaquin 750mg for 5 days - Flagyl 500 BID for 5 days - Lactic acid normalized #Alcohol Withdrawals - CIWA protocol - Ativan 2mg Q2h - seizure and aspiration precaution - elevated AST likely 2/2 alcohol abuse #Heart palpitations - Metoprolol 25mg daily #Prophylaxis - SCDs #FEN - monitor and replete lytes as needed - Banana bag @125mls/hr - low sodium diet - low K, Ca, Mg, Phos - repleted. Will continue to monitor and replete #Disposition - Likely to go to [facility] tomorrow Visit type - Emergency Visit Emergency Visit: Yes ED Registration Date: 04/23/19 Care time: The patient presented to the Emergency Department on the above date and was hospitalized for further evaluation of their emergent condition. - New Patient This patient is new to me today: Yes Date on this admission: 04/24/19 - Critical Care Critical Care patient: No ATTENDING PHYSICIAN STATEMENT I saw and evaluated the patient. I reviewed the resident's note and discussed the case with the resident. I agree with the resident's findings and plan as documented. SUBJECTIVE: OBJECTIVE: ASSESSMENT AND PLAN:
[2019-04-24 18:32] LABS: MAGNESIUM 1.9 mg/dL (1.8-2.4); PHOSPHOROUS 1.9 mg/dL (2.5-4.9)
--- NOTE | 2019-04-24 19:24 | PN ---
Teaching Attending Note Name of Resident: Bianca Sparrow ATTENDING PHYSICIAN STATEMENT I saw and evaluated the patient. I reviewed the resident's note and discussed the case with the resident. I agree with the resident's findings and plan as documented. Agree with overnight attending exam. Withdrawals with CIWA >15 on my assessment so giving 5 IV Valium and continue on IV Ativan protocol and supplements. Discussed with her at length in ER; she wants to go to [facility] for rehab and wishes to stop drinking. Intermittent chronic abdominal pain as described in Dr. Vazquez' note; will start on PPI for presumed EtOH gastritis. 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
[2019-04-25 04:46] VITALS: BMI 20.9
[2019-04-25] MEDS ORDERED: LORazepam 1 MG TABLET PO SCH (05:00)
[2019-04-25] MEDS ORDERED: chlordiazePOXIDE 5 MG CAPSULE PO SCH (05:00)
[2019-04-25] MEDS: levoFLOXacin 750 MG TABLET PO SCH (07:12)
[2019-04-25] MEDS ORDERED: POTASSIUM CHLORIDE TABS 20 MEQ TABLET.ER (FP) PO ONE ×2 (09:15→15:00)
[2019-04-25] MEDS: THIAMINE HCL 100 MG TABLET (FP) PO SCH (09:25)
[2019-04-25] MEDS: PANTOPRAZOLE 40 MG TABLET PO SCH (09:25)
[2019-04-25] MEDS: MULTIVITAMINS (DAILY MVI) TABLET (FP) PO SCH (09:26)
[2019-04-25] MEDS: METOPROLOL TARTRATE 25 MG TABLET (FP) PO SCH (09:26)
[2019-04-25] MEDS: FOLIC ACID 1 MG TABLET (FP) PO SCH (09:26)
[2019-04-25] MEDS: metroNIDAZOLE 500 MG TABLET PO SCH ×2 (09:30→21:29)
[2019-04-25 09:39] LABS: HEMATOCRIT 40.7 % (32.4-45.2); HEMOGLOBIN 14.1 GM/dL (10.7-15.3); MCH 32.9 pg (25.7-33.7); MCHC 34.6 g/dl (32.0-36.0); MEAN PLT VOLUME 8.7 fl (7.5-11.1); PLATELET COUNT 107 K/MM3 (134-434); RBC 4.28 M/mm3 (3.60-5.2); RDW 14.7 % (11.6-15.6); WHITE BLOOD COUNT 4.6 K/mm3 (4.0-10.0)
[2019-04-25] MEDS ORDERED: NAPH,MB-DB/K PH,MBDB POWDER PACKET PO SCH (10:00)
--- NOTE | 2019-04-25 10:01 | CON.PSY ---
Psychiatry Consult Chief Complaint: 58 Year o0ld female with a history of Alcohol abuse admitted for acute alcohol intoxication and withdrawl syndrome. Patient apparantly has a history of Depression . Symptoms: reports: Anxiety - Previous Psychiatric Treatment Outpatient: None, More than 6 mos ago Inpatient: None - Previous Substance Abuse Treatment Outpatient: None Inpatient: None - Reason for Previous Treatment Reason for Previous Treatment: Alcohol Abuse - Current Medications Current Medications: Active Medications Calcium Chloride (Calcium Chloride 10% -) 1 gm IVPUSH ONCE ONE Stop: 04/24/19 11:55 Folic Acid (Folic Acid -) 1 mg PO DAILY [facility] Last Admin: 04/25/19 09:26 Dose: 1 mg Levofloxacin (Levaquin) 750 mg PO DAILY@0600 [facility] Last Admin: 04/25/19 07:12 Dose: 750 mg Lorazepam (Ativan Injection -) 2 mg IVPUSH Q2H PRN PRN Reason: ANXIETY Metoprolol Tartrate (Lopressor -) 25 mg PO DAILY [facility] Last Admin: 04/25/19 09:26 Dose: 25 mg Metronidazole (Flagyl -) 500 mg PO BID [facility] Last Admin: 04/25/19 09:30 Dose: 500 mg Multivitamins/Minerals/Vitamin C (Tab-A-Vit -) 1 tab PO DAILY [facility] Last Admin: 04/25/19 09:26 Dose: 1 tab Pantoprazole Sodium (Protonix -) 40 mg PO DAILY [facility] Last Admin: 04/25/19 09:25 Dose: 40 mg Thiamine HCl (Vitamin B1 -) 100 mg PO DAILY [facility] Last Admin: 04/25/19 09:25 Dose: 100 mg - Allergies Allergies: Allergies Allergy/AdvReac Type Severity Reaction Status Date / Time No Known Drug Allergies Allergy Verified 10/07/15 09:13 - Current Living Status Usual Living Arrangement: Alone - Current Mental Status Evaluation Appearance: Disheveled Attitude: Guarded - Affect Affect: Constrictive Appropriateness: Appropriate to Content - Mood Mood: Anxious - Speech/Language Expressive: Coherent - Psychomotor Activity Psychomotor Activity: Tremors - Thought Process Thought Process: Intact - Thought Content Hallucinations: Absent Delusions: Absent - Self Perception Self Perception: No Impairment - Cognition Attention: Alert Orientation: Time Memory, Immediate Recall: Intact Memory, Short Term: 3/3 Memory, Remote with Promptin/3 - Concentration Serial Sevens Intact: No Simple Calculations Intact: Yes - Abstraction Proverb Interpretation: Intact Judgement: Minimally Impaired - Insight Insight: Intact - Impulse Control Impulse Control: Minimally Impaired - Suicidal Ideation Suicidal Ideation: No - Homicidal Ideation Homicidal Ideation: No Assessment/Plan 1) No neede to treat Depression at 5this time. 2) [id number] Detox and refer patient for Psych clinic if she chooses further Psychy eval. [id number] Depresionh a5t 5this time. She is in the middle of acute withdrawl.
[2019-04-25 10:07] LABS: ALBUMIN 3.4 g/dl (3.4-5.0); BILIRUBIN,DIRECT 0.3 mg/dL (0.0-0.2); BLOOD UREA NITROGEN 5.2 mg/dL (7-18); CALCIUM 8.6 mg/dL (8.5-10.1); CREATININE 0.6 mg/dL (0.55-1.3); MAGNESIUM 2.1 mg/dL (1.8-2.4); PHOSPHOROUS 2.1 mg/dL (2.5-4.9); POTASSIUM 3.7 mmol/L (3.5-5.1); TOT PROT 7.3 g/dl (6.4-8.2)
[2019-04-25] MEDS ORDERED: NAPH,MB-DB/K PH,MBDB POWDER PACKET PO ONE (14:45)
--- NOTE | 2019-04-25 15:19 | DS ---
Physical Exam: SUBJECTIVE: Patient seen and examined. States that she is feeling much better at this point. Does not want to go to [facility] anymore. Denies chest pain, SOB , abd pain, chills, fever. OBJECTIVE: Vital Signs Period Temp Pulse Resp BP Sys/Sauceda Pulse Ox Last 24 Hr 98.4 F-100.0 F 78-125 18-18 98-133/66-78 99-99 PHYSICAL EXAM GENERAL: The patient is awake, alert, no acute distress HEAD: Normal with no signs of trauma. EYES: PERRL, EOMI ENT: MMM NECK: Trachea midline, full range of motion, supple. LUNGS: Breath sounds equal, clear to auscultation bilaterally, no wheezes, no crackles, no accessory muscle use. HEART: RRR, no murmur noted ABDOMEN: Soft, nontender, nondistended, normoactive bowel sounds, no guarding, no rebound EXTREMITIES: 2+ pulses, warm, well-perfused, no edema. NEUROLOGICAL: normal speech, gait not observed. sensation intact throughout. PSYCH: anxious, no agitation SKIN: Warm, dry, normal turgor, no rashes or lesions noted LABS Laboratory Results - last 24 hr 04/24/19 04/24/19 04/25/19 06:02 15:45 07:30 WBC 4.6 RBC 4.28 Hgb 14.1 Hct 40.7 D MCV 95.0 MCH 32.9 MCHC 34.6 RDW 14.7 Plt Count 107 L MPV 8.7 Sodium 132 L Potassium 3.3 L Chloride 94 L Carbon Dioxide 28 Anion Gap 10 BUN 3.1 L Creatinine 0.6 Est GFR (CKD-EPI)AfAm 118.09 Est GFR (CKD-EPI)NonAf 101.89 Random Glucose 124 H Calcium 8.1 L Phosphorus 1.9 L Magnesium 1.9 Total Bilirubin 1.4 H Direct Bilirubin AST 123 H ALT 35 Alkaline Phosphatase 132 H Total Protein 7.8 Albumin 3.7 Hep C Ab Diagnostic 0.1 04/25/19 07:30 WBC RBC Hgb Hct MCV MCH MCHC RDW Plt Count MPV Sodium 137 Potassium 3.7 Chloride 104 Carbon Dioxide 25 Anion Gap 8 BUN 5.2 L Creatinine 0.6 Est GFR (CKD-EPI)AfAm 118.09 Est GFR (CKD-EPI)NonAf 101.89 Random Glucose 87 Calcium 8.6 Phosphorus 2.1 L Magnesium 2.1 Total Bilirubin 1.0 Direct Bilirubin 0.3 H AST 74 H ALT 27 Alkaline Phosphatase 103 Total Protein 7.3 Albumin 3.4 Hep C Ab Diagnostic HOSPITAL COURSE: Date of Admission:04/23/19 Date of Discharge: 04/25/19 58 y/o/f with PMHx of Alcohol abuse, depression, heart palpitations presents to the ED for suprapubic pain. Pt is admitted to medicine for lactic acidosis and alcohol intoxication. CT AP showed diffuse fatty liver, left sided nephrolithiasis without obstruction, possible left sided colitis without evidence of diverticulitis. Patient started on Levaquin and Flagyl for a total of 5 days. Patient was placed on Ativan to prevent alcohol withdrawal. Lactic acid normalized after fluids. Admitted with multiple electrolyte imbalances which were corrected. Started on banana bag, multivitamins, folic acid for alcohol use. Recommended to go to [facility] but patient refused and wanted to go home to family. Minutes to complete discharge: 36 Discharge Summary Problems reviewed: Yes Reason For Visit: ALCOHOL DEPENDENCE Current Active Problems Abdominal pain (Acute) Alcohol dependence with uncomplicated withdrawal (Acute) Condition: Stable - Instructions Diet, Activity, Other Instructions: You presented to the hospital due to abdominal pain. Your urinanalysis was negative for a UTI and your urine cultures have been negative to date. Imaging of your abdomen/pelvis found that you have a fatty liver, left sided kidney stones that are non-obstructing, and left-sided colitis (inflammation of your colon). You were started on abx for the colitis and will be discharged with continuing antibiotics. You were seen by Dr. Carrasco, Psychiatry, for depression. He did not believe that you need medications at this time. We recommend following up in his clinic for further management of your depression. Medication Changes: 1. START taking Levaquin 750mg once daily for 3 more days. 2. START taking Flagyl 500mg twice daily for 3 more days. 3. START taking Thiamine (Vitamin B1). 4. START taking Folic acid. Follow up with the following physicians: 1. Please follow up with your primary care provider within 3-5 days of discharge for further management of your medical conditions and to discuss the medications you were started on while in the hospital. 2. Recommended to follow up with Dr. Ruano, Gastroenterology, within 1-2 weeks of discharge for further workup of your medical conditions. 3. Recommended to follow up with Psychiatry, Dr. Belle, within 1-2 weeks of discharge for further management of your depression. Dr. Belle did not feel that you needed to be started on any medications at this time. Activity and Diet 1. You are being discharged home. Recommend daily exercise to strengthen your muscles. 2. You have been counseled on your alcohol use, if you choose you can go to [facility] for detox/rehab from alcohol use. 3. Please monitor your diet, your electrolytes were abnormal during this admission and were repleted appropriately. A proper diet can help prevent this from happening again. Continue all your other medications as prescribed Please return to the ER if you have any signs or symptoms of chest pain, shortness of breath, uncontrollable fever, chills, nausea, vomiting, numbness, tingling, or weakness in any part of your body, changes in vision, or slurred speech. Please return to the ER if symptoms persist, worsen, or new symptoms arise. Referrals: Kennedi Belle MD [Staff Physician] - Aravind Pruett MD [Staff Physician] - Rosi Ruano DO [Staff Physician] - Disposition: HOME - Home Medications Comprehensive Discharge Medication List: Ambulatory Orders Metoprolol Tartrate [Lopressor -] 50 mg PO DAILY 04/23/19 Folic Acid - 1 mg PO DAILY 30 Days #30 tablet 04/25/19 Thiamine HCl [Vitamin B1 -] 100 mg PO DAILY 30 Days #30 tablet 04/25/19 levoFLOXacin [Levaquin] 750 mg PO DAILY@0600 3 Days #3 tab 04/25/19 metroNIDAZOLE [Flagyl -] 500 mg PO BID 3 Days #6 tablet 04/25/19 This patient is new to me today: Yes Date on this admission: 04/25/19 Emergency Visit: No Critical Care patient: No - Discharge Referral Referred to [facility] Med [facility].C[facility] No ATTENDING PHYSICIAN STATEMENT I saw and evaluated the patient. I reviewed the resident's note and discussed the case with the resident. I agree with the resident's findings and plan as documented. SUBJECTIVE: OBJECTIVE: ASSESSMENT AND PLAN:
[2019-04-25] MEDS ORDERED: PT OWN MED DRAWER 7, Y5N ONE (21:22)
[2019-04-26] MEDS ORDERED: LORazepam 0.5 MG TABLET PO PRN
[2019-04-26] MEDS ORDERED: chlordiazePOXIDE HCL 10 MG CAPSULE PO PRN
[2019-04-26] MEDS ORDERED: LORazepam 0.5 MG TABLET PO SCH (05:00)
[2019-04-26] MEDS ORDERED: chlordiazePOXIDE HCL 10 MG CAPSULE PO SCH (05:00)
[2019-04-26] MEDS: levoFLOXacin 750 MG TABLET PO SCH (05:22)
[2019-04-26] MEDS ORDERED: PT OWN MED DRAWER 7, Y5N ONE (10:25)
[2019-04-26] MEDS ORDERED: LORazepam 1 MG TABLET PO PRN (10:35)
[2019-04-26] MEDS: PANTOPRAZOLE 40 MG TABLET PO SCH (10:36)
[2019-04-26] MEDS: FOLIC ACID 1 MG TABLET (FP) PO SCH (10:36)
[2019-04-26] MEDS: METOPROLOL TARTRATE 25 MG TABLET (FP) PO SCH (10:36)
[2019-04-26] MEDS: MULTIVITAMINS (DAILY MVI) TABLET (FP) PO SCH (10:36)
[2019-04-26] MEDS: THIAMINE HCL 100 MG TABLET (FP) PO SCH (10:37)
[2019-04-26] MEDS: metroNIDAZOLE 500 MG TABLET PO SCH ×2 (10:37→21:30)
--- NOTE | 2019-04-26 10:41 | PN ---
Physical Exam: SUBJECTIVE: Patient seen and examined. She has no complaints. She is tremulous and appears anxious. OBJECTIVE: Vital Signs Period Temp Pulse Resp BP Sys/Sauceda Pulse Ox Last 24 Hr 98.2 F-98.8 F 77-91 18-18 105-142/59-96 99 GENERAL: The patient is awake, alert, and fully oriented, anxious and tremulous. LUNGS: Breath sounds equal, clear to auscultation bilaterally, no wheezes, no crackles, no accessory muscle use. HEART: Regular rhythm, S1, S2, tachycardic without murmur, rub or gallop. ABDOMEN: Soft, nontender, nondistended, normoactive bowel sounds, no guarding, no rebound, no hepatosplenomegaly, no masses. EXTREMITIES: 2+ pulses, warm, well-perfused, no edema. NEUROLOGICAL: Mild left facial weakness. Normal speech, gait unsteady. Laboratory Results - last 24 hr 04/24/19 21:00 HIV 1&2 Ag/Ab, 4th Gen Non reactive Active Medications Generic Name Dose Route Start Last Admin Trade Name Srikanthq PRN Reason Stop Dose Admin Calcium Chloride 1 gm 04/24/19 11:54 Calcium Chloride 10% - IVPUSH 04/24/19 11:55 ONCE ONE Folic Acid 1 mg 04/25/19 10:00 04/25/19 09:26 Folic Acid - PO 1 mg DAILY CARMELITA Administration Levofloxacin 750 mg 04/25/19 06:00 04/26/19 05:22 Levaquin PO 750 mg DAILY@0600 CARMELITA Administration Lorazepam 2 mg 04/24/19 16:39 Ativan Injection - IVPUSH Q2H PRN ANXIETY Metoprolol Tartrate 25 mg 04/24/19 10:00 04/25/19 09:26 Lopressor - PO 25 mg DAILY CARMELITA Administration Metronidazole 500 mg 04/25/19 10:00 04/25/19 21:29 Flagyl - PO 500 mg BID CARMELITA Administration Multivitamins/Minerals/Vitamin C 1 tab 04/25/19 10:00 04/25/19 09:26 Tab-A-Vit - PO 1 tab DAILY CARMELITA Administration Pantoprazole Sodium 40 mg 04/24/19 12:00 04/25/19 09:25 Protonix - PO 40 mg DAILY CARMELITA Administration Thiamine HCl 100 mg 04/25/19 10:00 04/25/19 09:25 Vitamin B1 - PO 100 mg DAILY CARMELITA Administration ASSESSMENT/PLAN: This is a 58 year old woman with a history of alcohol abuse, depression, palpitations who presented to the ED with suprapubic pain. 1. Alcohol withdrawal, uncomplicated - Patient still with signs of withdrawal - Will start Ativan detox 2. Alcohol intoxication - Resolved 3. Continuous alcohol dependence - Continue thiamine, folic acid, multivitamin - Patient interested in outpatient alcohol treatment programs - Will get detox consult 4. Colitis - Continue Levaquin, Flagyl x 5 days 5. Lactic acidosis - Likely secondary to alcohol use - Resolved 6. History of palpitations - Continue Lopressor 7. Hyponatremia - Resolved 8. Hypokalemia - Resolved 9. Hypomagnesemia - Resolved Visit type - Emergency Visit Emergency Visit: Yes ED Registration Date: 04/23/19 Care time: The patient presented to the Emergency Department on the above date and was hospitalized for further evaluation of their emergent condition. - New Patient This patient is new to me today: Yes Date on this admission: 04/26/19 - Critical Care Critical Care patient: No - Discharge Referral Referred to [facility] Med [facility].C.: No
[2019-04-26] MEDS: LORazepam 1 MG TABLET PO SCH ×3 (12:30→23:23)
--- NOTE | 2019-04-26 21:32 | CONSULT ---
Consult Detox [facility] Reason for Current Admission/Consult: Patient was intoxicated with alcohol Referred by:: Ace - History History of Present Illness: 58 yo F PMH of Alcohol abuse, Depression, heart palpitations presents to the ED for suprapubic pain. pt states that she has been having suprapubic pain for 2 weeks. it has been constant. heating pads alleviate the pain. pt states that she went to urgent care on sunday and they told her she may have a UTI but did not prescribe any antibiotics. the urgent care called her today and told her to come to the ED . pt denies dysuria, frequency, f/c/n/v/d ER course was notable for: (1)lactate (2)ceftriaxone (3)4 L IVF - History Source History Provided By: Medical Record Limitations to Obtaining History: No Limitations - Alcohol/Substance Use Hx Alcohol Use: Yes (as per medical record and alcohol level on admission) - Current Drug/Alcohol Use Alcohol Amount used: 1 pint daily Date of Last Use: 04/25/19 - Past Medical History MANAGER OF CLINICAL: Yes: Syncope Psych: Yes: Addictions (ETOH abuse), Depression - Past Surgical History Past Surgical History: Yes: AV Fistula/Graft, Tubal Ligation - Significant Medical Findings: GENERAL: Awake, alert, and fully oriented, in no acute distress. CIWA 9. HEAD: Normal with no signs of trauma. EYES: Pupils equal, round and reactive to light, extraocular movements intact, sclera anicteric EARS, NOSE, THROAT: Ears normal, nares patent, oropharynx clear without exudates. Moist mucous membranes. tongue fasciculations NECK: Normal range of motion, supple without lymphadenopathy LUNGS: Breath sounds equal, clear to auscultation bilaterally. No wheezes, and no crackles. No accessory muscle use. HEART: Regular rate and rhythm, normal S1 and S2 without murmur, rub or gallop. ABDOMEN: Soft, nontender, not distended, normoactive bowel sounds, no guarding, no rebound, no masses. MUSCULOSKELETAL: Normal range of motion at all joints. No bony deformities or tenderness. No CVA tenderness. UPPER EXTREMITIES: 2+ pulses, warm, well-perfused. No cyanosis. No clubbing. No peripheral edema. tremulous LOWER EXTREMITIES: 2+ pulses, warm, well-perfused. No calf tenderness. No peripheral edema. NEUROLOGICAL: Cranial nerves II-XII intact. Normal speech. Normal gait. PSYCHIATRIC: Cooperative. Good eye contact. Appropriate mood and affect. SKIN: Warm, dry, normal turgor, no rashes or lesions noted, normal capillary refill. Laboratory Last Values WBC 4.4 K/mm3 (4.0-10.0) 04/23/19 16:44 RBC 4.37 M/mm3 (3.60-5.2) 04/23/19 16:44 Hgb 14.2 GM/dL (10.7-15.3) 04/23/19 16:44 Hct 41.7 % (32.4-45.2) 04/23/19 16:44 MCV 95.3 fl (80-96) 04/23/19 16:44 MCH 32.5 pg (25.7-33.7) 04/23/19 16:44 MCHC 34.1 g/dl (32.0-36.0) 04/23/19 16:44 RDW 15.1 % (11.6-15.6) 04/23/19 16:44 Plt Count 140 K/MM3 (134-434) D 04/23/19 16:44 MPV 8.1 fl (7.5-11.1) 04/23/19 16:44 Absolute Neuts (auto) 2.0 K/mm3 (1.5-8.0) 04/23/19 16:44 Neutrophils % 46.4 % (42.8-82.8) D 04/23/19 16:44 Lymphocytes % 39.8 % (8-40) D 04/23/19 16:44 Monocytes % 10.7 % (3.8-10.2) H 04/23/19 16:44 Eosinophils % 1.0 % (0-4.5) 04/23/19 16:44 Basophils % 2.1 % (0-2.0) H D 04/23/19 16:44 Nucleated RBC % 0 % (0-0) 04/23/19 16:44 Sodium 142 mmol/L (136-145) 04/23/19 20:30 Potassium 3.7 mmol/L (3.5-5.1) 04/23/19 20:30 Chloride 104 mmol/L (98-107) 04/23/19 20:30 Carbon Dioxide 30 mmol/L (21-32) 04/23/19 20:30 Anion Gap 8 MMOL/L (8-16) 04/23/19 20:30 BUN 9.3 mg/dL (7-18) 04/23/19 20:30 Creatinine 0.5 mg/dL (0.55-1.3) L 04/23/19 20:30 Est GFR (CKD-EPI)AfAm 125.40 04/23/19 20:30 Est GFR (CKD-EPI)NonAf 108.19 04/23/19 20:30 Random Glucose 92 mg/dL (74-106) 04/23/19 20:30 Lactic Acid 3.1 mmol/L (0.4-2.0) H* 04/23/19 21:35 Calcium 7.6 mg/dL (8.5-10.1) L 04/23/19 20:30 Phosphorus 3.5 mg/dL (2.5-4.9) 04/23/19 20:30 Magnesium 2.1 mg/dL (1.8-2.4) 04/23/19 20:30 Total Bilirubin 0.3 mg/dL (0.2-1) 04/23/19 20:30 AST 86 U/L (15-37) H 04/23/19 20:30 ALT 31 U/L (13-61) 04/23/19 20:30 Alkaline Phosphatase 112 U/L (45-117) 04/23/19 20:30 Total Protein 7.2 g/dl (6.4-8.2) 04/23/19 20:30 Albumin 3.5 g/dl (3.4-5.0) 04/23/19 20:30 Lipase 198 U/L (73-393) 04/23/19 16:44 Urine Color Yellow 04/23/19 16:44 Urine Appearance Clear 04/23/19 16:44 Urine pH 7.0 (5.0-8.0) 04/23/19 16:44 Ur Specific Geary 1.009 (1.010-1.035) L 04/23/19 16:44 Urine Protein Trace (NEGATIVE) 04/23/19 16:44 Urine Glucose (UA) Negative (NEGATIVE) 04/23/19 16:44 Urine Ketones Negative (NEGATIVE) 01/08/20 16:44 Urine Blood 1+ (NEGATIVE) H 04/23/19 16:44 Urine Nitrite Negative (NEGATIVE) 04/23/19 16:44 Urine Bilirubin Negative (NEGATIVE) 04/23/19 16:44 Urine Urobilinogen 0.2 mg/dL (0.2-1.0) 04/23/19 16:44 Ur Leukocyte Esterase 1+ (NEGATIVE) H 04/23/19 16:44 Urine WBC (Auto) 3 /hpf (0-5) 04/23/19 16:44 Urine RBC (Auto) 6 /hpf (0-4) 04/23/19 16:44 Urine Casts (Auto) 0 /lpf (0-8) 04/23/19 16:44 U Epithel Cells (Auto) 2.5 /HPF (0-5/HPF) 04/23/19 16:44 Urine Bacteria (Auto) 19.3 /hpf (NEGATIVE) 04/23/19 16:44 Alcohol, Quantitative 295.9 mg/dL (0.0-5.0) H 04/23/19 20:30 ASSESSMENT/PLAN: 58 yo F PMH of Alcohol abuse, Depression, heart palpitations presents to the ED for suprapubic pain. pt is admitted to medicine for lactic acidosis Lactic Acidosis 2/2 Alcohol use vs thiamine deficiency vs acute infectious process - afebrile, no leukocytosis -neg UA -CT abdomen / pelvis to eval for suprapubic pain - Alcohol level 295 -will measure folate, B12 -c/w thiamine, folate, IVF, multivitamin -s/p 1 g ceftriaxone in ED, 5L IVF - continue to trend CIWA Score - CIWA Score Nausea/Vomitin Muscle Tremors: 3 Anxiety: 1-Mildly Anxious Agitation: 2 Orientation: 0-Oriented Tacttile Disturbances: 0-None Auditory Disturbances: 0-None Visual Disturbances: 0-None Headache: 1-Very Mild (CIWA 9) Assessment Plan - Plan Plan: 1. Alcohol Dependence with intoxication: Lactic acidosis most likely from intoxication. Unlikely it is infectious as patient was not febrile or had leukocytosis. Continue to hydrate with fluid. Continue to monitor lactic acid Continue Ativan Detox Protocol When stabilized, and if patient consents to detox, she may be transferred to [facility]. Dr. Ray - Medication Detox Regimen/Protocol: Ativan
[2019-04-27] MEDS ORDERED: chlordiazePOXIDE HCL 10 MG CAPSULE PO ONE (05:00)
[2019-04-27] MEDS ORDERED: LORazepam 0.5 MG TABLET PO ONE (05:00)
[2019-04-27] MEDS: LORazepam 1 MG TABLET PO SCH ×4 (06:04→22:35)
[2019-04-27] MEDS: levoFLOXacin 750 MG TABLET PO SCH (06:05)
[2019-04-27 07:59] LABS: WHITE BLOOD COUNT 5.1 K/mm3 (4.0-10.0)
[2019-04-27 08:00] LABS: HEMATOCRIT 38.6 % (32.4-45.2); HEMOGLOBIN 13.2 GM/dL (10.7-15.3); MCH 33.1 pg (25.7-33.7); MCHC 34.3 g/dl (32.0-36.0); MEAN CELL VOLUME 96.5 fl (80-96); PLATELET COUNT 151 K/MM3 (134-434); RDW 15.1 % (11.6-15.6)
[2019-04-27 08:07] LABS: ALBUMIN 3.4 g/dl (3.4-5.0); BILIRUBIN,TOTAL 0.7 mg/dL (0.2-1); BLOOD UREA NITROGEN 18.2 mg/dL (7-18); CALCIUM 9.2 mg/dL (8.5-10.1); CREATININE 0.9 mg/dL (0.55-1.3); MAGNESIUM 1.9 mg/dL (1.8-2.4); PHOSPHOROUS 4.9 mg/dL (2.5-4.9); POTASSIUM 4.7 mmol/L (3.5-5.1); TOT PROT 7.2 g/dl (6.4-8.2)
--- NOTE | 2019-04-27 08:12 | PN ---
Teaching Attending Note Name of Resident: Bianca Sparrow ATTENDING PHYSICIAN STATEMENT I saw and evaluated the patient. I reviewed the resident's note and discussed the case with the resident. I agree with the resident's findings and plan as documented. Seen and examined; please see resident note for further historical information. I personally verified all [place] historical information and exam findings. Personally interpreted all imaging and diagnostics and reviewed appropriate consults. I reviewed all labs and vital signs as per resident note and EMR as documented. I agree with the above assessment and plan unless supplemented by myself in the following. I spoke with the patient at length yesterday and they decided that they did not want to go to [place] initially, then changed her mind later in the day. Apparently this morning they have informed the resident team that they do not wish to pursue inpatient detox and she endorses this to myself. She has no further issues, is hemodynamically stable, and and her C was below 15. She states that she is willing to follow-up as an outpatient for detox and that she does not have a clear plan to stop drinking. Is likely that she will relapse. We will offer her inpatient detox and provide her with a list of outpatient facilities but she is not agreeable to this we will discharge her home VS, labs, imaging reviewed NAD, AAO, resting comfortably in bed. RRR s1/2 no mgr Normal muscle tone, moves all 5 extremities with normal apparent strength Neck is supple, trachea midline, no tatiana LN Lungs CTAB with sym expansion NT ND +BS no tatiana organomegaly CN2-12 wnl; no FND NC AT EOMI PERRLA Flat affect, restricted insight No skin breakdown or rashes noted Assessment and plan: Colitis, continue p.o. antibiotics for 5 days Alcohol abuse, our referring outpatient facilities given her recent refusal of inpatient facilities, thiamine and folate, monitor C1 Ativan detox. Suprapubic pain present on admission has improved Lactic acidosis resolved, secondary to alcohol abuse
[2019-04-27] MEDS ORDERED: PT OWN MED DRAWER 7, Y5N ONE ×2 (09:05→11:15)
[2019-04-27] MEDS: THIAMINE HCL 100 MG TABLET (FP) PO SCH (09:14)
[2019-04-27] MEDS: PANTOPRAZOLE 40 MG TABLET PO SCH (09:14)
[2019-04-27] MEDS: MULTIVITAMINS (DAILY MVI) TABLET (FP) PO SCH (09:14)
[2019-04-27] MEDS: FOLIC ACID 1 MG TABLET (FP) PO SCH (09:14)
[2019-04-27] MEDS: metroNIDAZOLE 500 MG TABLET PO SCH ×2 (09:15→22:37)
[2019-04-27] MEDS: METOPROLOL TARTRATE 25 MG TABLET (FP) PO SCH ×2 (09:16→10:49)
--- NOTE | 2019-04-27 09:20 | PN ---
Physical Exam: SUBJECTIVE: Patient seen and examined at the bedside. Patient stated that she felt well and desired to go home. Denied homicidal or suicidal ideation. Stated she did not want to go to inpatient detox and preferred an outpatient program. Endorsed minor discomfort in her abdomen. Denied cp, sob, n/v/c/d, fever, chills , headaches, dizziness, lightheadedness, dysuria, hematuria, auditory or visual hallucinations, delusions, parasthesias. OBJECTIVE: Vital Signs Period Temp Pulse Resp BP Sys/Sauceda Pulse Ox Last 24 Hr 97.2 F-98.8 F 92-106 20-20 102-142/58-93 98-98 GENERAL: The patient is awake, alert, and fully oriented, in no acute distress. HEAD: Normal with no signs of trauma. EYES: PERRL, extraocular movements intact, sclera anicteric, conjunctiva clear. ENT: Oropharynx clear without exudates, moist mucous membranes. NECK: Trachea midline, full range of motion, supple. LUNGS: Breath sounds equal, clear to auscultation bilaterally, no wheezes, no crackles, no accessory muscle use. HEART: Regular rate and rhythm, S1, S2 without murmur, rub. ABDOMEN: Soft, minor tenderness in RLQ, nondistended, normoactive bowel sounds, no guarding, no rebound, no masses. EXTREMITIES: 2+ pulses, warm, well-perfused, no edema. NEUROLOGICAL: Cranial nerves II through XII grossly intact. 5/5 muscle strength bilaterally upper and lower extremities. PSYCH: Normal mood, normal affect. No SI/HI/AH/VH SKIN: Warm, dry, normal turgor, no rashes or lesions noted. Laboratory Results - last 24 hr 04/27/19 04/27/19 07:10 07:10 WBC 5.1 RBC 4.00 Hgb 13.2 Hct 38.6 MCV 96.5 H MCH 33.1 MCHC 34.3 RDW 15.1 Plt Count 151 D MPV 9.0 Sodium 139 Potassium 4.7 Chloride 105 Carbon Dioxide 28 Anion Gap 6 L BUN 18.2 H Creatinine 0.9 Est GFR (CKD-EPI)AfAm 82.84 Est GFR (CKD-EPI)NonAf 71.48 Random Glucose 90 Calcium 9.2 Phosphorus 4.9 Magnesium 1.9 Total Bilirubin 0.7 AST 53 H ALT 27 Alkaline Phosphatase 96 Total Protein 7.2 Albumin 3.4 Active Medications Generic Name Dose Route Start Last Admin Trade Name Freq PRN Reason Stop Dose Admin Folic Acid 1 mg 04/25/19 10:00 04/27/19 09:14 Folic Acid - PO 1 mg DAILY CARMELITA Administration Levofloxacin 750 mg 04/25/19 06:00 04/27/19 06:05 Levaquin PO 750 mg DAILY@0600 CARMELITA Administration Lorazepam 2 mg 04/26/19 11:00 04/27/19 06:04 Ativan - PO 04/27/19 23:01 2 mg 0500,1100,1700,2300 CARMELITA Administration Lorazepam 0.5 mg 04/29/19 05:00 Ativan - PO 04/29/19 23:01 Q6H CARMELITA Lorazepam 0.5 mg 04/29/19 00:00 Ativan - PO 04/30/19 00:00 Q4H PRN Symptoms of Withdrawal Lorazepam 0.5 mg 04/30/19 05:00 Ativan - PO 04/30/19 05:01 ONCE ONE Lorazepam 1 mg 04/28/19 05:00 Ativan - PO 04/28/19 23:01 0500,1100,1700,2300 CARMELITA Lorazepam 1 mg 04/26/19 10:35 Ativan - PO 04/28/19 23:59 Q4H PRN Symptoms of Withdrawal Metoprolol Tartrate 25 mg 04/24/19 10:00 04/27/19 09:16 Lopressor - PO Not Given DAILY CARMELITA Metronidazole 500 mg 04/25/19 10:00 04/27/19 09:15 Flagyl - PO 500 mg BID CARMELITA Administration Multivitamins/Minerals/Vitamin C 1 tab 04/25/19 10:00 04/27/19 09:14 Tab-A-Vit - PO 1 tab DAILY CARMELITA Administration Pantoprazole Sodium 40 mg 04/24/19 12:00 04/27/19 09:14 Protonix - PO 40 mg DAILY CARMELITA Administration Thiamine HCl 100 mg 04/25/19 10:00 04/27/19 09:14 Vitamin B1 - PO 100 mg DAILY CARMELITA Administration ASSESSMENT/PLAN: Whit Beltrán is a 58 year old female with a past medical history of Alcohol abuse, depression, heart palpitations admitted to medicine for lactic acidosis and alcohol intoxication. Lactic Acidosis 2/2 Alcohol use vs. Colitis - lactic acidosis improved - afebrile, no leukocytosis - UA negative for UTI - CT AP - diffuse fatty liver, Left sided nephrolithiasis without obstruction, possible left sided colitis without evidence of diverticulitis - Alcohol level 295 on admisison - folate, B12 WNL - c/w thiamine, folate, IVF, multivitamin - Levaquin 750mg for total 5 days - Flagyl 500 BID for total 5 days Alcohol Withdrawal - CIWA protocol, currently 2 - Ativan protocol - seizure and aspiration precaution - elevated AST likely 2/2 alcohol abuse - patient is not amenable to inpatient detox, prefers outpatient program, was provided with resources - currently not in withdrawal, out of window for DT - patient with capacity for making her own medical decisions Heart palpitations - Metoprolol 25mg daily Prophylaxis - SCDs FEN - no standing fluids, encourage PO intake - continue to monitor electrolytes and replete as necessary - low sodium diet Disposition - likely discharge upon speaking with family Visit type - Emergency Visit Emergency Visit: Yes ED Registration Date: 04/23/19 Care time: The patient presented to the Emergency Department on the above date and was hospitalized for further evaluation of their emergent condition. - New Patient This patient is new to me today: Yes Date on this admission: 04/27/19 - Critical Care Critical Care patient: No
--- NOTE | 2019-04-27 13:40 | PN ---
Teaching Attending Note Name of Resident: Kenn Camara ATTENDING PHYSICIAN STATEMENT I saw and evaluated the patient. I reviewed the resident's note and discussed the case with the resident. I agree with the resident's findings and plan as documented. Seen and examined; please see resident note for further historical information. I personally verified all [place] historical information and exam findings. Personally interpreted all imaging and diagnostics and reviewed appropriate consults. I reviewed all labs and vital signs as per resident note and EMR as documented. I agree with the above assessment and plan unless supplemented by myself in the following. Spoke with patient and her daughter. The patient states that they want to go home and denies any suicidal homicidal ideation. They do not have access to firearms. The patient has no indicative of underlying psychiatric issues. I am told that the disagreed with the discharge stating that she was a danger to herself and others due to her underlying drinking. There is no can to station that the patient is an alcoholic, but I do not see any reason why discharge to be held as the patient has full capacity. The patient has no underlying signs or symptoms of noted psychosis for inability to care for herself and she is mentating completely appropriately with CIWA of negligible magnitude. I spoke with her at length today and she stated that in no way is she interested in pursuing inpatient detoxification. She states that this is due to her ability to follow-up as an outpatient. She has ability to transport and no mitigating factors that would prevent this. She states that she is pretty sure she would stop drinking. She was provided with a list of outpatient rehabs on Sunday and is well out of the window of any DTs. 10 item review of systems completed and is negative aside from history of present illness VS, labs, imaging reviewed NAD, AAO, resting comfortably in bed. RRR s1/2 no mgr Normal muscle tone, moves all 5 extremities with normal apparent strength Neck is supple, trachea midline, no tatiana LN Lungs CTAB with sym expansion NT ND +BS no tatiana organomegaly CN2-12 wnl; no FND NC AT EOMI PERRLA Normal mood, appropriate behavior, euthymic affect No skin breakdown or rashes noted Assessment and plan: Patient remains hemodynamically stable and afebrile and is well out of the window for any DTs. She is in possession of a negligible CIWA magnitude and is feeling quite well and states that she is not interested in outpatient detoxification. The apparently feels that she is unsafe for discharge as she is an alcoholic, but it is up to her if she would like to continue with the outpatient followup. No SI/HI. She never made any suicidal comments, etc. and has no clear rationale as to how she is unsafe. Plan is to DC home and FU with PCP/OP rehabilitation as she is not in any way interested in inpatient detox. Will discuss with her and plan for DC home today. Full Code
[2019-04-28] MEDS ORDERED: LORazepam 1 MG TABLET PO SCH (05:00)
[2019-04-28] MEDS: levoFLOXacin 750 MG TABLET PO SCH (06:41)
[2019-04-28] MEDS ORDERED: PT OWN MED DRAWER 7, Y5N ONE ×2 (10:10→12:56)
[2019-04-28] MEDS: FOLIC ACID 1 MG TABLET (FP) PO SCH (10:25)
[2019-04-28] MEDS: THIAMINE HCL 100 MG TABLET (FP) PO SCH (10:25)
[2019-04-28] MEDS: metroNIDAZOLE 500 MG TABLET PO SCH (10:26)
[2019-04-28] MEDS: PANTOPRAZOLE 40 MG TABLET PO SCH (10:26)
[2019-04-28] MEDS: MULTIVITAMINS (DAILY MVI) TABLET (FP) PO SCH (10:26)
[2019-04-28] MEDS: METOPROLOL TARTRATE 25 MG TABLET (FP) PO SCH ×2 (10:28→11:13)
--- NOTE | 2019-04-28 15:11 | PN ---
Teaching Attending Note Name of Resident: Bianca Sparrow ATTENDING PHYSICIAN STATEMENT I saw and evaluated the patient. I reviewed the resident's note and discussed the case with the resident. I agree with the resident's findings and plan as documented. Patient was cleared by psych, not felt to be depressed, they did not recommend any inpatient hospitalization for psych reasons. The states that she gets drunk which makes her an unsafe discharge. This is not true from a medical or psychiatric standpoint though, and the patient's behavior, well less than desirable, is not medical contraindication to discharge. She has full capacity and competency and states that she will be able to follow-up with outpatient rehabilitation. She has a Siwa score of 0 that has been negligible for quite some time, and the patient's family was updated. She was given outpatient referrals, case management was spoken with, and she was discharged. Though I attempted multiple times to return to the patient's room yesterday to speak with the I was only able to locate the daughter who I did update at length. She is hemodynamically stable and afebrile, has no further complaints, states that she will likely stop drinking, and will be discharged home. VS, labs, imaging reviewed NAD, AAO, resting comfortably in bed. RRR s1/2 no mgr Normal muscle tone, moves all 5 extremities with normal apparent strength Neck is supple, trachea midline, no tatiana LN Lungs CTAB with sym expansion NT ND +BS no tatiana organomegaly CN2-12 wnl; no FND NC AT EOMI PERRLA Normal mood, appropriate behavior, euthymic affect No skin breakdown or rashes noted Agree with hospital course and follow-ups as per resident note
[2019-04-28 15:58] VITALS: BP 120/67; PULSE 80; TEMP 98.1
--- NOTE | 2019-04-28 17:00 | DS ---
Physical Exam: SUBJECTIVE: Patient seen and examined. No acute events overnight. Patient without complaints. States that she has talked to her family and will go to a women's rehab facility in [facility] after discharge. Denies chest pain, abd pain, SOB, anxiety, agitation, headache, sweating. OBJECTIVE: Vital Signs Period Temp Pulse Resp BP Sys/Sauceda Pulse Ox Last 24 Hr 97.7 F-98.6 F 68-93 20-20 97-120/51-73 99-99 PHYSICAL EXAM GENERAL: The patient is awake, alert, no acute distress HEAD: Normal with no signs of trauma. EYES: PERRL, EOMI, no scleral icterus ENT: MMM NECK: Trachea midline, full range of motion, supple. LUNGS: Breath sounds equal, clear to auscultation bilaterally, no wheezes, no crackles, no accessory muscle use. HEART: RRR, no murmur noted ABDOMEN: Soft, nontender, nondistended, normoactive bowel sounds, no guarding, no rebound EXTREMITIES: 2+ pulses, warm, well-perfused, no edema. minimal tremors noted NEUROLOGICAL: normal speech, gait not observed. sensation intact throughout. PSYCH: normal mood and affect SKIN: Warm, dry, normal turgor, no rashes or lesions noted LABS HOSPITAL COURSE: Date of Admission:04/23/19 Date of Discharge: 04/28/19 58 y/o/f with PMHx of Alcohol abuse, depression, heart palpitations presents to the ED for suprapubic pain. Pt is admitted to medicine for lactic acidosis and alcohol intoxication. CT AP showed diffuse fatty liver, left sided nephrolithiasis without obstruction, possible left sided colitis without evidence of diverticulitis. Patient started on Levaquin and Flagyl for a total of 5 days, last dose will be on 04/29. Patient was placed on Ativan to prevent alcohol withdrawal. Lactic acid normalized after fluids. Admitted with multiple electrolyte imbalances which were corrected. Started on banana bag, multivitamins, folic acid for alcohol use. Recommended to go to [facility] but patient refused and wanted to go home to family. Patient was medically cleared for discharge, however patient's was concerned about patient's safety at home and wanted patient kept in hospital. Patient seen by Psychiatry, recommended outpatient follow up, no medication needed for depression at this time. Patient denies suicidal or homicidal ideations. Patient discussed options with family and states that she will go to a women's rehab facility in [facility]. Patient to continue Flagyl 500mg BID and Levaquin 750mg for one more day. Sent prescription for folic acid and thiamine supplements. Patient safe for discharge at this time. Recommended follow up with GI for further workup of possible colitis seen on CT AP. Minutes to complete discharge: 36 Discharge Summary Problems reviewed: Yes Reason For Visit: ALCOHOL DEPENDENCE Condition: Stable - Instructions Diet, Activity, Other Instructions: You presented to the hospital due to abdominal pain. Your urinalysis was negative for a urinary tract infection and your urine cultures have been negative to date. Imaging of your abdomen/pelvis found that you have a fatty liver, left sided kidney stones that are non-obstructing, and left-sided colitis (inflammation of your colon). You were started on antibiotics for the colitis and will be discharged with continuing antibiotics. You were seen by Dr. Carrasco, Psychiatry, for depression. He did not believe that you need medications at this time. We recommend following up in his clinic for further management of your depression. Medication Changes: 1. START taking Levaquin 750mg once daily for 1 more day. Your last dose will be on 02/28/20. 2. START taking Flagyl 500mg twice daily for 1 more day. Your last dose will be on 04/29/19. 3. START taking Thiamine (Vitamin B1) 100mg once daily. 4. START taking Folic acid 1mg once daily. Follow up with the following physicians: 1. Please follow up with your primary care provider within 3-5 days of discharge for further management of your medical conditions and to discuss the medications you were started on while in the hospital. 2. Recommended to follow up with Dr. Ruano, Gastroenterology, within 1-2 weeks of discharge for further workup of your medical conditions. 3. Recommended to follow up with Psychiatry, Dr. Belle, within 1-2 weeks of discharge for further management of your depression. Dr. Belle did not feel that you needed to be started on any medications at this time. Activity and Diet 1. You are being discharged home. Recommend daily exercise to strengthen your muscles. 2. You have been counseled on your alcohol use, if you choose you can go to [facility] for detox/rehab from alcohol use. 3. Please monitor your diet, your electrolytes were abnormal during this admission and were repleted appropriately. A proper diet can help prevent this from happening again. Continue all your other medications as prescribed. Please return to the ER if you have any signs or symptoms of chest pain, shortness of breath, uncontrollable fever, chills, nausea, vomiting, numbness, tingling, or weakness in any part of your body, changes in vision, or slurred speech. Please return to the ER if symptoms persist, worsen, or new symptoms arise. Referrals: Kennedi Belle MD [Staff Physician] - Aravind Pruett MD [Staff Physician] - Rosi Ruano DO [Staff Physician] - Disposition: HOME - Home Medications Comprehensive Discharge Medication List: Ambulatory Orders Metoprolol Tartrate [Lopressor -] 50 mg PO DAILY 04/23/19 Folic Acid - 1 mg PO DAILY 30 Days #30 tablet 04/25/19 Thiamine HCl [Vitamin B1 -] 100 mg PO DAILY 30 Days #30 tablet 04/25/19 Levofloxacin [Levaquin] 750 mg PO DAILY 1 Days #1 tablet 04/28/19 metroNIDAZOLE [Flagyl -] 500 mg PO BID #3 tablet 04/28/19 This patient is new to me today: No Emergency Visit: Yes ED Registration Date: 04/23/19 Care time: The patient presented to the Emergency Department on the above date and was hospitalized for further evaluation of their emergent condition. Critical Care patient: No - Discharge Referral [facility] No ATTENDING PHYSICIAN STATEMENT I saw and evaluated the patient. I reviewed the resident's note and discussed the case with the resident. I agree with the resident's findings and plan as documented. SUBJECTIVE: OBJECTIVE: ASSESSMENT AND PLAN:
[2019-04-29] MEDS ORDERED: LORazepam 0.5 MG TABLET PO PRN
[2019-04-29] MEDS ORDERED: LORazepam 0.5 MG TABLET PO SCH (05:00)
[2019-04-30] MEDS ORDERED: LORazepam 0.5 MG TABLET PO ONE (05:00)
== END 2019-04-28 16:18 | disposition home or self-care (01) | DRG 775 ==
LOC: SUPCPDRO 16:28 → JER 16:28 → JERBED 22:59 → J5S 04-24 18:48
PROVIDERS: ADMIT Internal Medicine; ATTEND Internal Medicine
DX: F10.230 Alcohol dependence with withdrawal, uncomplicated (principal); F10.220 Alcohol dependence with intoxication, uncomplicated; E87.2 Acidosis; E83.42 Hypomagnesemia; E87.6 Hypokalemia; R00.2 Palpitations; F32.9 Major depressive disorder, single episode, unspecified; Y90.8 Blood alcohol level of 240 mg/100 ml or more; K76.0 Fatty (change of) liver, not elsewhere classified; N20.0 Calculus of kidney; K52.9 Noninfective gastroenteritis and colitis, unspecified; E87.1 Hypo-osmolality and hyponatremia
CPT/HCPCS: 36415; 70450-TC; 71045-TC-FY; 74177-TC; 80053; 80307; 81003; 82248; 82607; 82746; 83540; 83605; 83690; 83735; 84100; 84443; 85025; 85027; 86803; 87086; 87389; 93005; 93010; 97116-GP; 97161-GP; 99285-25; J1644; J7030

== ENCOUNTER 2019-11-04 06:37 | Day surgery (SDC) | payer OTHER ==
[2019-11-03 14:05] VITALS: BMI 25.0
[2019-11-04] MEDS ORDERED: LIDOCAINE HCL 1%, 10 MG/ML (20ML VIAL) ONE (09:45)
[2019-11-04] MEDS ORDERED: DEXAMETHASONE SOD PHOSPHATE 4 MG/1 ML VIAL ONE (09:45)
[2019-11-04] MEDS ORDERED: BUPIVACAINE HCL 150 ML ONE (09:46)
[2019-11-04] MEDS ORDERED: BENZOIN/ALOE VERA/STORAX/TOLU 58 ML BOTTLE ONE (10:27)
[2019-11-04] MEDS ORDERED: MIDAZOLAM HCL 2 MG/2 ML SINGLE DOSE VIAL ONE ×2 (10:47)
[2019-11-04] MEDS ORDERED: PROPOFOL 20 ML ONE (10:51)
[2019-11-04] MEDS ORDERED: SUCCINYLCHOLINE CHLORIDE 200 MG/10 ML SYRINGE ONE (10:52)
[2019-11-04] MEDS ORDERED: ceFAZolin SODIUM 1 GM VIAL IVPB ONE (11:00)
[2019-11-04] MEDS ORDERED: LIDOCAINE HCL 1%, 10 MG/ML (20ML VIAL) ID ONE (11:08)
[2019-11-04] MEDS ORDERED: BUPIVACAINE HCL 0.5% 250 MG/50 ML VIAL IJ ONE ×2 (11:08→11:48)
[2019-11-04] MEDS ORDERED: ePHEDrine SULFATE 50 MG/1 ML AMPULE ONE (11:18)
[2019-11-04] MEDS ORDERED: BACITRACIN 50,000 UNITS VIAL TP ONE (11:30)
[2019-11-04] MEDS ORDERED: BENZOIN/ALOE VERA/STORAX/TOLU 58 ML BOTTLE TP ONE (11:45)
[2019-11-04] MEDS ORDERED: DEXAMETHASONE SOD PHOSPHATE 4 MG/1 ML VIAL IVPUSH ONE (11:48)
[2019-11-04] MEDS ORDERED: oxyCODONE HCL 5 MG TABLET PO PRN (12:07)
[2019-11-04] MEDS ORDERED: ONDANSETRON 4 MG/2 ML VIAL IVPUSH PRN (12:07)
[2019-11-04] MEDS ORDERED: PROMETHAZINE HCL 25 MG/1 ML VIAL IVPUSH PRN (12:07)
[2019-11-04] MEDS ORDERED: LACTATED RINGERS SOLUTION 1,000 ML IV SCH (12:15)
[2019-11-04 13:56] VITALS: BP 117/64; PULSE 72; TEMP 97.4
--- NOTE | 2019-11-04 20:47 | OP ---
Operative Note - Note: Operative Date: 11/04/19 Pre-Operative Diagnosis: Hallux Limitus/Valgus left foot Operation: Modified Jurado Bunionectomy repair hallux limitus exostectomy left foot Findings: hypertrophic bone and soft tissue Post-Operative Diagnosis: Same as Pre-op Surgeon: Ludin Vides Head And Neck Surgeon: Az Salinas Anesthesia: General Estimated Blood Loss (mls): 5 Operative Report Dictated: Yes
--- NOTE | 2019-11-06 09:15 | OP ---
DATE OF OPERATION: 11/04/2019 SURGEON: Ludin Vides DPM DRY MOP MAKER: Az Salinas PREOPERATIVE DIAGNOSIS: Painful bunion left with hallux limitus. POSTOPERATIVE DIAGNOSIS: Same PROCEDURE: Modified Jurado bunionectomy left foot with joint mobilization PATHOLOGY: Bone and soft tissue. ANESTHESIA: LOCAL MAC HEMOSTASIS: Left ankle tourniquet set at 250 mmHg. ESTIMATED BLOOD LOSS: Less than 5 mL. MATERIALS USED: Vicryl 2-0, Vicryl 3-0, Vicryl 4-0 and Vicryl 5-0. INJECTABLES: Preoperative injection of 10 mL of 1:1 mixture of 0.5% Marcaine plain and 1% lidocaine plain and postoperative injection of 8 mL of 0.5% Marcaine plain and 2 mL of dexamethasone. DESCRIPTION OF PROCEDURE: The patient was brought in the operating room, placed on the operating table in the supine position. Anesthesia was administered to the patient. Left ankle tourniquet was applied to the patient's left ankle but not inflated. Preoperative injection was administered to the left foot in a Rios type fashion. The left foot was then scrubbed, prepped and draped in the usual aseptic manner. Timeout was performed and the left ankle tourniquet was inflated to 250 mmHg. Attention was directed to the dorsomedial aspect of the 1st metatarsal head where an approximately 5 cm linear incision was placed medial to the extensor hallucis longus tendon with a 15 blade. The incision was deepened through the skin down to the subcutaneous layer. Using blunt and sharp dissection the incision was deepened down to the capsule. All vessels were ligated and cauterized as needed. Using a fresh 15 blade the incision was then deepened down through the periosteum in a longitudinal fashion following the skin incision. The periosteum was sharply dissected off of the 1st metatarsal. The joint was then exposed and the head of the metatarsal was freed of all soft tissue attachments. Using a McGlamry elevator the plantar aspect were sessamoids are located was then released on the plantar surface of the 1st metatarsal head. The head of the metatarsal was examined noted to be arthritic on the majority of the metatarsal head and was devoid of cartilage tissue. However the patient had excellent ROM with no crepitus. A dorsal spur was noted on the head of the metatarsal and it was excised using a sagittal saw. Using a bur, all rough and sharp edges were corrected. The hallux then was put into a range of motion. It was noted that there was excellent dorsiflexion, plantarflexion of the hallux. The incision site was then flushed with copious amounts of sterile saline mixed with bacitracin. The periosteum and capsule were reapproximated using 2-0 Vicryl and 3-0 Vicryl. The subcutaneous tissue was reapproximated using 4-0 Vicryl and the skin was reapproximated using 5-0 Vicryl in a subcuticular running fashion. Steri-Strips were applied over the incision site and then Betadine-soaked Adaptic was applied over the incision. A postop block of 10 mL of 0.5% Marcaine plain mixed with 2 mL of dexamethasone was administered around the incision site. Sterile 4 x 4, ABD and Manfred and Tommie bandage were applied to the patient's left foot. The left ankle tourniquet was then deflated and hyperemic response was noted to all digits, and the patient was transferred to the PACU with vital signs stable and neurovascular status intact. STEPHANIE Barreto/[id number] MTDGisselle
--- NOTE | 2019-11-06 18:48 | PATH ---
Surgical Pathology Report Patient Name: JILLIAN MONTESINOS [facility]. Rec. #: [id number] /Age/Gender: 1960 (Age: 59) / F Account: [id number] Location: [facility] SURGICAL Taken: 11/04/2019 Received: 11/04/2019 Reported: 11/06/2019 Physicians: Ludin Vides DPM Specimen(s) Received A: LEFT FOOT FIRST METATARSAL, FIRST DIGIT BONE SPUR B: LEFT FOOT FIRST METATARSAL, FIRST DIGIT BONE FRAGMENT Clinical History Hallux valgus (acquired) left foot Final Diagnosis A. BONE SPUR, FOOT, LEFT, FIRST DIGIT, FIRST METATARSAL, BUNIONECTOMY: BENIGN BONE WITH FATTY MARROW AND DENSE FIBROCONNECTIVE TISSUE. B. BONE FRAGMENT, FOOT, LEFT, FIRST DIGIT, FIRST METATARSAL, BUNIONECTOMY: BENIGN BONE AND DENSE FIBROCONNECTIVE TISSUE. Electronically Signed Rosi Higgins M.D. Gross Description A. Received in formalin labeled "left foot first digit metatarsal bone spur," are 2 denny-yellow portions of bone measuring 1.2 x 0.3 x 0.1 cm and 1.5 x 0.9 x 0.1 cm. The specimens are submitted in toto in one cassette, following decalcification. B. Received in formalin labeled "left foot first metatarsal first digit bone fragment," is a 0.7 x 0.4 x 0.1 cm denny-yellow portion of bone. The specimen is submitted in toto in one cassette, following decalcification. /11/05/2019 saudi11/05/2019
== END 2019-11-04 14:02 | disposition home or self-care (01) ==
LOC: JASU-SURG 06:37
PROVIDERS: ATTEND Podiatrist Foot Surgery
PROC: 0QSP04Z Reposition Left Metatarsal with Internal Fixation Device, Open Approach (ICD-10-PCS; principal; 2019-11-04 08:30)
DX: M20.5X2 Other deformities of toe(s) (acquired), left foot (principal); M20.12 Hallux valgus (acquired), left foot
CPT/HCPCS: 73630-TC-LT; 88304-TC; 88311-TC; 94760

== ENCOUNTER 2019-11-20 04:59 | Day surgery (SDC) | payer OTHER ==
[2019-11-18 09:41] VITALS: BMI 25.7
[2019-11-20] MEDS ORDERED: MIDAZOLAM HCL 2 MG/2 ML SINGLE DOSE VIAL ONE ×2 (10:24→11:01)
[2019-11-20] MEDS ORDERED: PROPOFOL 20 ML ONE (10:24)
[2019-11-20] MEDS ORDERED: BUPIVACAINE HCL 100 ML ONE (10:35)
[2019-11-20] MEDS ORDERED: DEXAMETHASONE SOD PHOSPHATE 4 MG/1 ML VIAL ONE ×2 (10:35→10:59)
[2019-11-20] MEDS ORDERED: LIDOCAINE HCL 1%, 10 MG/ML (20ML VIAL) ONE (10:35)
[2019-11-20] MEDS ORDERED: BACITRACIN 15 GM TUBE TOPICAL OINTMENT ONE (10:35)
[2019-11-20] MEDS ORDERED: ceFAZolin SODIUM 1 GM VIAL ONE (11:03)
[2019-11-20] MEDS ORDERED: ceFAZolin SODIUM 1 GM VIAL IVPB ONE (11:04)
[2019-11-20] MEDS ORDERED: BUPIVACAINE HCL/PF 0.5% (5 MG/ML) 30 ML VIAL IJ ONE ×3 (11:14→11:46)
[2019-11-20] MEDS ORDERED: LIDOCAINE HCL 1%, 10 MG/ML (20ML VIAL) ID ONE (11:14)
[2019-11-20] MEDS ORDERED: KETOROLAC TROMETHAMINE 30 MG/1 ML VIAL ONE (11:46)
[2019-11-20] MEDS ORDERED: DEXAMETHASONE SOD PHOSPHATE 4 MG/1 ML VIAL NR ONE (11:46)
--- NOTE | 2019-11-20 12:54 | OP ---
Operative Note - Note: Operative Date: 11/20/19 Pre-Operative Diagnosis: Hallux limitus/Hallux Valgus right foot Operation: Repair Hallux Limitus/Hallux Valgus Findings: Hypertrophic bone and soft tissue. Implants: none Post-Operative Diagnosis: Same as Pre-op Surgeon: Ludin Vides Anesthesia: Local, MAC Specimens Removed: Bone and soft tissue Estimated Blood Loss (mls): 5 Operative Report Dictated: No
[2019-11-20 14:18] VITALS: BP 124/62; PULSE 66; TEMP 97.3
--- NOTE | 2019-11-21 08:49 | OP ---
DATE OF OPERATION: 11/20/2019 SURGEON: Ludin Vides DPM RETENTION MANAGER: Robbie Choe PREOPERATIVE DIAGNOSIS: Painful bunion right with hallux limitus with joint mobilization. POSTOPERATIVE DIAGNOSIS: Same OPERATION: Modified Vasquez bunionectomy right TYPE OF ANESTHESIA: Local MAC ESTIMATED BLOOD LOSS: 5 mL. HEMOSTASIS: Achieved with the ankle tourniquet to 250 mm. DESCRIPTION OF PROCEDURE: The patient was brought to the operating room and placed supine on the operating room table until adequate IV sedation was administered and 1:1 local infiltrative block was given in and around the proposed injection site. The foot was then prepped and draped in the usual aseptic fashion. Attention was directed to the 1st metatarsophalangeal joint. A dorsal incision was made over the right 1st MPJ. This incision was meticulously carried down to the joint capsule utilizing both blunt and sharp dissection. An incision was made into the metatarsophalangeal joint dorsally revealing lateral, medial and dorsal exostosis of the 1st metatarsal head. Use of the McGlamry elevator was utilized to free up and mobilize the 1st MPJ. After this was done, the 1st MPJ was put through a range of motion and limited at the end of range of motion dorsally. Utilizing a sagittal saw, the exostoses were removed both medially, dorsally, and laterally. This was then burred down to a smooth contour, simulating the appropriate contour of the 1st metatarsal head in a normal anatomic specimen. Once again, the 1st MPJ was run through a range of motion and it was noted that the joint had excellent and improved range of motion. The area was then copiously irrigated with normal saline and antibiotic irrigation. Closure was done utilizing 2.0 vicryl for capsular closure. 3.0 & 4.0 vicryl for subcutaneous closure. 5.0 Vicryl for subcuticular closure. Steri-Strips were applied. Postoperative injection of 8 mL of 0.5% Marcaine and 2cc 4mg/ml dexamethasone were given in and around the incision site. A dry sterile dressing was then applied with an KELSEY bandage over that. The tourniquette was deflated. The patient tolerated the anesthesia and surgical procedure well and left the operating room to the recovery area with vital signs stable and vascular status intact to all digits of the right foot. Ludin Vides DPM [id number] IDRIS
--- NOTE | 2019-11-21 17:05 | PATH ---
Surgical Pathology Report Patient Name: JILLIAN MONTESINOS [facility]. Rec. #: [id number] /Age/Gender: 1960 (Age: 59) / F Account: [id number] Location: [facility] SURGICAL Taken: 11/20/2019 Received: 11/20/2019 Reported: 11/21/2019 Physicians: Ludin Vides DPM Specimen(s) Received METATARSAL HEAD RIGHT FOOT Clinical History Bunion right foot Final Diagnosis METATARSAL HEAD RIGHT FOOT, EXCISION: FRAGMENTS OF FIBROCONNECTIVE TISSUE AND BONE WITH FOCAL DEGENERATIVE CHANGE. Electronically Signed Val Daigle M.D. Gross Description Received in formalin labeled "metatarsal head right foot," are 2 denny-yellow portions of bone measuring 1.2 x 0.7 x 0.1 cm and 1.9 x 0.9 x 0.2 cm. Also received within the same container are 2 denny soft tissue fragments measuring 1.7 x 0.9 x 0.2 cm in aggregate. Piercing Mill Operator sections are submitted in one cassette, following decalcification. /11/20/2019 [facility]11/20/2019
== END 2019-11-20 14:15 | disposition home or self-care (01) ==
LOC: JASU-SURG 04:59
PROVIDERS: ATTEND Podiatrist Foot Surgery
PROC: 0QBN0ZZ Excision of Right Metatarsal, Open Approach (ICD-10-PCS; 2019-11-20)
PROC: 0QSN04Z Reposition Right Metatarsal with Internal Fixation Device, Open Approach (ICD-10-PCS; principal; 2019-11-20 09:30)
DX: M20.21 Hallux rigidus, right foot (principal); M21.611 Bunion of right foot
CPT/HCPCS: 73630-TC-RT-FY; 88304-TC; 88311-TC

== ENCOUNTER 2019-12-10 12:16 | Day surgery (SDC) | payer OTHER ==
[2019-12-10 12:33] VITALS: BMI 22.1
[2019-12-10] MEDS ORDERED: PROPOFOL 20 ML ONE ×2 (13:44)
[2019-12-10 14:23] VITALS: TEMP 97.6
[2019-12-10 14:42] VITALS: BP 105/60; PULSE 82
--- NOTE | 2019-12-17 16:31 | PATH ---
Surgical Pathology Report Patient Name: JILLIAN MONTESINOS [facility]. Rec. #: [id number] /Age/Gender: 1960 (Age: 59) / F Account: [id number] Location: [facility] Taken: 12/10/2019 Received: 12/10/2019 Reported: 12/17/2019 Physicians: Rosi Ruano M.D. Specimen(s) Received A: RANDOM RIGHT COLON B: RANDOM TRANSVERSE COLON C: SPNECER DESCENDING COLON Clinical History Change in bowel habits History of C. diff. colitis Postoperative diagnosis: r/o colitis, hemorrhoids, diverticulosis Final Diagnosis A.RIGHT COLON, RANDOM, BIOPSY: MICROSCOPIC (LYMPHOCYTIC) COLITIS. (SEE NOTE) Note: There is mild increase in lamina propria infiltrate, comprised of lymphocytes, plasma cells and eosinophils with no significant crypt architectural distortion. There is moderate surface and crypt epithelial lymphocytosis highlighted by CD3 immunostain with focal surface epithelial injury. Trichrome stain demonstrates no evidence of abnormal subepithelial collagen deposition. These findings are consistent with lymphocytic colitis. Correlation with clinical findings is suggested. B. TRANSVERSE COLON, RANDOM, BIOPSY: COLONIC MUCOSA WITH NO SIGNIFICANT PATHOLOGIC FINDINGS. C. DESCENDING COLON, RANDOM, BIOPSY: COLONIC MUCOSA WITH NO SIGNIFICANT PATHOLOGIC FINDINGS. Electronically Signed Jamila José M.D. Gross Description A. Received in formalin, labeled "random right colon" is a denny, irregular portion of soft tissue measuring 0.6 cm. in greatest dimension. The specimen is submitted in toto in one cassette. B. Received in formalin, labeled "random transverse colon" is a denny, irregular portion of soft tissue measuring 0.3 cm. in greatest dimension. The specimen is submitted in toto in one cassette. C. Received in formalin, labeled "random descending colon" is a denny, irregular portion of soft tissue measuring 0.2 cm. in greatest dimension. The specimen is submitted in toto in one cassette. AE/12/11/2019 [facility]12/11/2019
== END 2019-12-10 14:35 | disposition home or self-care (01) ==
LOC: FASU-ENDO 12:16
PROVIDERS: ATTEND Internal Medicine Gastroenterology
PROC: 0DBL8ZX Excision of Transverse Colon, Via Natural or Artificial Opening Endoscopic, Diagnostic (ICD-10-PCS; 2019-12-10)
PROC: 0DBM8ZX Excision of Descending Colon, Via Natural or Artificial Opening Endoscopic, Diagnostic (ICD-10-PCS; 2019-12-10)
PROC: 0DBH8ZX Excision of Cecum, Via Natural or Artificial Opening Endoscopic, Diagnostic (ICD-10-PCS; principal; 2019-12-10 13:55)
DX: Z12.11 Encounter for screening for malignant neoplasm of colon (principal); K52.839 Microscopic colitis, unspecified; K57.30 Diverticulosis of large intestine without perforation or abscess without bleeding; K64.1 Second degree hemorrhoids
CPT/HCPCS: 88305-TC; 88313-TC; 88342-TC